=== PATIENT | male | born 1950 | race African-American/Black ===

== ENCOUNTER 2020-03-16 11:54 | Outpatient (REF) | payer MEDICARE, OTHER, SELFPAY ==
[2020-03-16 14:34] LABS: PSA,Total (Free>4and<10) 2.89 ng/mL (0.00-4.00)
== END 2020-03-16 11:55 | disposition home or self-care (01) ==
LOC: HO.HMGCLDS 11:54
PROVIDERS: PCP Internal Medicine; Visit Provider Urology
DX: Z85.46 Personal history of malignant neoplasm of prostate (principal); Z12.5 Encounter for screening for malignant neoplasm of prostate
CPT/HCPCS: 84153

== ENCOUNTER 2020-03-29 09:49 | Outpatient (REF) | payer MEDICARE, OTHER, SELFPAY ==
--- NOTE | 2020-03-29 10:00 | XR_ITS ---
EXAMINATION: XR HIP, LEFT CLINICAL INFORMATION: M25.552 - Pain in left hip COMPARISON: None TECHNIQUE: Frontal view pelvis is performed along with AP and frog-lateral projections left hip. FINDINGS: There is no fracture, dislocation, destructive process. There are mild degenerative changes lumbosacral spine. Bilateral whiskering from the iliac crests seen, greater on right. The pubis is unremarkable. There are degenerative changes right hip with superior joint narrowing. No erosive change. There has been prior left hip replacement. The hardware is intact. There is no fracture or dislocation or destructive process. An oval nonmineralized and circumscribed cyst is present within the superior aspect left greater trochanter measuring approximately 1.4 x 1.8 cm. XR/XR hip LT w PEL1V IMPRESSION: 1. Status post left hip replacement. Hardware intact. Circumscribed cyst within the left greater trochanter 1.4 x 1.8 cm. 2. Degenerative changes lumbosacral spine and right hip.
== END 2020-03-29 09:50 | disposition home or self-care (01) ==
LOC: HO.HMGCX 09:49
PROVIDERS: PCP Internal Medicine; Visit Provider Internal Medicine
DX: M25.552 Pain in left hip (principal)
CPT/HCPCS: 73502

== ENCOUNTER 2020-08-02 16:33 | Outpatient (REF) | payer MEDICARE, OTHER, SELFPAY | END 2020-08-02 16:34 | disposition home or self-care (01) | LOC: HO.LNP 16:33 | PROVIDERS: Visit Provider Internal Medicine | DX: N39.0 Urinary tract infection, site not specified (principal) | CPT/HCPCS: 87086; 87088; 87186 ==

== ENCOUNTER 2020-08-16 08:26 | Outpatient (REF) | payer MEDICARE, OTHER, SELFPAY ==
[2020-08-16 11:59] LABS: Alanine Aminotransferase 25 U/L (0-40); Anion Gap 12 (12-20); Aspartate Amino Transferase 19 U/L (5-37); Blood Urea Nitrogen 18 mg/dL (9-16); Calcium 9.2 mg/dL (8.4-10.2); Carbon Dioxide 29 mmol/L (22-29); Chloride 103 mmol/L (96-108); Cholesterol 197 mg/dL; Estimated Glomerular Filt Rate > 60; Glucose Fasting 91 mg/dL (60-99); HDL Cholesterol 53 mg/dL; LDL Cholesterol Calculated 128 mg/dl; Potassium 4.1 mmol/L (3.3-5.1); Sodium 140 mmol/L (135-145); Triglycerides 80 mg/dL
[2020-08-16 12:23] LABS: PSA,Total (Free>4and<10) 4.76 ng/mL (0.00-4.00)
[2020-08-17 11:37] LABS: Free Prostate Spec Ag 0.5 ng/mL; Percent Free Prostate Spec Ag 11 % (calc) (>25); Prostate Specific Ag Total 4.6 ng/mL (< OR = 4.0)
== END 2020-08-16 08:27 | disposition home or self-care (01) ==
LOC: HO.HMGCLDS 08:26
PROVIDERS: Urology; PCP Internal Medicine; Visit Provider Internal Medicine
DX: E78.5 Hyperlipidemia, unspecified (principal); I10 Essential (primary) hypertension; N40.1 Benign prostatic hyperplasia with lower urinary tract symptoms; N13.8 Other obstructive and reflux uropathy; C61 Malignant neoplasm of prostate; Z12.5 Encounter for screening for malignant neoplasm of prostate
CPT/HCPCS: 36415; 80048; 80061; 84153; 84154; 84450; 84460

== ENCOUNTER 2020-09-06 07:51 | Outpatient (REF) | payer MEDICARE, OTHER, SELFPAY | END 2020-09-06 07:52 | disposition home or self-care (01) | LOC: HO.HOSX 07:51 | PROVIDERS: Visit Provider Physician Assistant | DX: M25.551 Pain in right hip (principal); M25.511 Pain in right shoulder; Z96.642 Presence of left artificial hip joint | CPT/HCPCS: 99202 ==

== ENCOUNTER 2020-09-13 07:13 | Outpatient (REF) | payer MEDICARE, OTHER, SELFPAY ==
--- NOTE | ~2020-09-13 | XR_ITS ---
EXAMINATION: XR HIP, RIGHT CLINICAL INFORMATION: Right hip pain COMPARISON: Pelvic radiograph 03/29/2020 TECHNIQUE: AP and frog-lateral projections of the right hip. FINDINGS: No fracture, dislocation, destructive process. There are osteoarthritic changes with moderate narrowing right superior hip joint and borderline subchondral sclerosis. No erosive change or visible chondrocalcinosis. There are also mild degenerative changes lower right SI joint. XR/XR hip RT min 2V IMPRESSION: Moderate superior right hip joint narrowing. Mild degenerative change lower right SI joint.
== END 2020-09-13 07:14 | disposition home or self-care (01) ==
LOC: HO.HOSX 07:13
PROVIDERS: Visit Provider Physician Assistant
DX: M16.11 Unilateral primary osteoarthritis, right hip (principal)
CPT/HCPCS: 73502; 99212

== ENCOUNTER 2020-09-27 08:42 | Outpatient (REF) | payer MEDICARE, OTHER, SELFPAY ==
[2020-09-27 13:48] LABS: PSA,Total (Free>4and<10) 4.25 ng/mL (0.00-4.00)
[2020-09-28 11:42] LABS: Free Prostate Spec Ag 0.5 ng/mL; Percent Free Prostate Spec Ag 11 % (calc) (>25); Prostate Specific Ag Total 4.4 ng/mL (< OR = 4.0)
== END 2020-09-27 08:43 | disposition home or self-care (01) ==
LOC: HO.LAB 08:42
PROVIDERS: PCP Internal Medicine; Visit Provider Urology
DX: Z12.5 Encounter for screening for malignant neoplasm of prostate (principal); C61 Malignant neoplasm of prostate
CPT/HCPCS: 36415; 84153; 84154

== ENCOUNTER → 2020-09-28 14:46 | Outpatient (BNVA) | payer MEDICARE, OTHER, SELFPAY | PROVIDERS: PCP Internal Medicine; Visit Provider Urology | DX: N40.1 Benign prostatic hyperplasia with lower urinary tract symptoms (principal); N39.0 Urinary tract infection, site not specified; C61 Malignant neoplasm of prostate | CPT/HCPCS: 99212 ==

== ENCOUNTER 2021-03-31 14:20 | Outpatient (REF) | payer MEDICARE, OTHER, SELFPAY ==
[2021-04-01 00:54] LABS: PSA,Total (Free>4and<10) 2.96 ng/mL (0.00-4.00)
== END 2021-03-31 14:21 | disposition home or self-care (01) ==
LOC: HO.HMGCLDS 14:20
PROVIDERS: Absent Provider Internal Medicine; PCP Internal Medicine; Visit Provider Urology
DX: I10 Essential (primary) hypertension (principal); E78.5 Hyperlipidemia, unspecified; C61 Malignant neoplasm of prostate; N13.8 Other obstructive and reflux uropathy; N40.1 Benign prostatic hyperplasia with lower urinary tract symptoms; Z20.822 Contact with and (suspected) exposure to COVID-19; Z12.5 Encounter for screening for malignant neoplasm of prostate
CPT/HCPCS: 36415; 84153; U0003; U0005

== ENCOUNTER → 2021-04-19 10:26 | Outpatient (BNVA) | payer MEDICARE, OTHER, SELFPAY | PROVIDERS: PCP Internal Medicine; Visit Provider Urology | DX: C61 Malignant neoplasm of prostate (principal) | CPT/HCPCS: Q3014 ==

== ENCOUNTER 2021-11-07 09:43 | Outpatient (REF) | payer MEDICARE, OTHER, SELFPAY ==
[2021-11-07 11:57] LABS: Prostate Specific Antigen 1.97 ng/mL (<0.05-4.0)
== END 2021-11-07 09:44 | disposition home or self-care (01) ==
LOC: HO.HMGCLDS 09:43
PROVIDERS: PCP Internal Medicine; Visit Provider Urology
DX: Z12.5 Encounter for screening for malignant neoplasm of prostate (principal); C61 Malignant neoplasm of prostate
CPT/HCPCS: 36415; 84153

== ENCOUNTER → 2021-11-30 13:51 | Outpatient (BNVA) | payer MEDICARE, OTHER, SELFPAY | PROVIDERS: PCP Internal Medicine; Visit Provider Urology | DX: C61 Malignant neoplasm of prostate (principal) | CPT/HCPCS: Q3014 ==

== ENCOUNTER 2022-05-23 07:48 | Outpatient (REF) | payer MEDICARE, OTHER, SELFPAY ==
[2022-05-23 11:54] LABS: Prostate Specific Antigen 2.26 ng/mL (<0.05-4.0)
== END 2022-05-23 07:49 | disposition home or self-care (01) ==
LOC: HO.HMGCLDS 07:48
PROVIDERS: PCP Internal Medicine; Visit Provider Urology
DX: C61 Malignant neoplasm of prostate (principal); Z12.5 Encounter for screening for malignant neoplasm of prostate
CPT/HCPCS: 36415; 84153

== ENCOUNTER 2022-07-25 12:31 | Outpatient (REF) | payer MEDICARE, OTHER, SELFPAY ==
[2022-07-25 14:19] LABS: Alanine Aminotransferase 16 U/L (0-40); Anion Gap 13 (12-20); Aspartate Amino Transferase 19 U/L (5-37); Blood Urea Nitrogen 21 mg/dL (9-16); Calcium 9.5 mg/dL (8.4-10.2); Carbon Dioxide 28 mmol/L (22-29); Chloride 107 mmol/L (96-108); Cholesterol 204 mg/dL; Estimated Glomerular Filt Rate > 60; Glucose Fasting 78 mg/dL (60-99); HDL Cholesterol 68 mg/dL; LDL Cholesterol Calculated 129 mg/dl; Sodium 144 mmol/L (135-145); Triglycerides 37 mg/dL
[2022-07-25 14:57] LABS: Erythrocyte Sedimentation Rate 14 MM/HR (0-15)
== END 2022-07-25 12:32 | disposition home or self-care (01) ==
LOC: HO.HMGCLDS 12:31
PROVIDERS: PCP Internal Medicine; Visit Provider Internal Medicine
DX: E78.5 Hyperlipidemia, unspecified (principal); I10 Essential (primary) hypertension; K21.9 Gastro-esophageal reflux disease without esophagitis; M79.10 Myalgia, unspecified site; Z86.16 Personal history of COVID-19
CPT/HCPCS: 36415; 80048; 80061; 82550; 84450; 84460; 85652; 86141

== ENCOUNTER 2022-08-07 09:39 | Outpatient (REF) | payer MEDICARE, OTHER, SELFPAY ==
--- NOTE | ~2022-08-07 | XR_ITS ---
EXAMINATION: 1. RADIOGRAPHS THORACIC SPINE 2. RADIOGRAPHS LUMBAR SPINE CLINICAL INFORMATION: Dorsalgia COMPARISON: None TECHNIQUE: 3 views of the thoracic spine and 3 views of the lumbar spine were obtained. FINDINGS: Thoracic spine: Normal alignment of the thoracic spine. Thoracic vertebral body heights are maintained. Mild disc space narrowing within the mid and lower thoracic spine. Small to moderate-sized osteophytes are scattered throughout the thoracic spine. Visualized lung parenchyma is well aerated. Lumbar spine: Normal alignment of the lumbar spine. Lumbar vertebral body heights are maintained. Mild narrowing of the L3/L4 disc space. There are mild degenerative changes of the posterior elements of the lower lumbar spine. Partially visualized bilateral hip prostheses. XR/XR thoracic spine 3V IMPRESSION: 1. Mild degenerative changes of the thoracic spine without compression deformity. 2. Mild degenerative changes of the lumbar spine without compression deformity.
--- NOTE | ~2022-08-07 | XR_ITS ---
EXAMINATION: 1. RADIOGRAPHS THORACIC SPINE 2. RADIOGRAPHS LUMBAR SPINE CLINICAL INFORMATION: Dorsalgia COMPARISON: None TECHNIQUE: 3 views of the thoracic spine and 3 views of the lumbar spine were obtained. FINDINGS: Thoracic spine: Normal alignment of the thoracic spine. Thoracic vertebral body heights are maintained. Mild disc space narrowing within the mid and lower thoracic spine. Small to moderate-sized osteophytes are scattered throughout the thoracic spine. Visualized lung parenchyma is well aerated. Lumbar spine: Normal alignment of the lumbar spine. Lumbar vertebral body heights are maintained. Mild narrowing of the L3/L4 disc space. There are mild degenerative changes of the posterior elements of the lower lumbar spine. Partially visualized bilateral hip prostheses. XR/XR lumbar spine 2-3V IMPRESSION: 1. Mild degenerative changes of the thoracic spine without compression deformity. 2. Mild degenerative changes of the lumbar spine without compression deformity.
== END 2022-08-07 09:40 | disposition home or self-care (01) ==
LOC: HO.HMGCX 09:39
PROVIDERS: PCP Internal Medicine; Visit Provider Internal Medicine
DX: M54.9 Dorsalgia, unspecified (principal)
CPT/HCPCS: 72072; 72100

== ENCOUNTER 2022-10-11 15:08 | Outpatient (AMB) | payer MEDICARE, OTHER, SELFPAY ==
--- NOTE | 2022-10-11 15:09 | A.OFFVIS_ITS ---
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 He is a patient of Dr. Harvey. He is seen for the following urologic conditions. - prostate cancer - worked on [employer]. Telemedicine Evaluation 15 min Consultation [employer] Juan J Video attempted PSA remains stable Minimal issues Continue 6 month surveillance Prescription refilled Prostate cancer: low-grade, low volume 2016 PSA stable Continue surveillance Prostate cancer was diagnosed 05/19 Dr Preston. Diagnosis was reached by needle biopsy, for elevated PSA, PSA at diagnosis 10, , size at TRUS 60cc. The [place] grade is 05/2016 3+3 = 6, At biopsy, one out of twelve cores - left apex 50% . TNM Classification of Malignant Tumours (TNM) T1c. The D'Ellen (NCCN) risk category is Low Risk (PSA< 10, Gl < 7, T1c). Initial therapy included Primary treatment, Observation. Recent labs included a PSA (prostate-specific antigen) Apr 18 - 10.4, Oct 16 8.4, 02/16 5.3/19%, 10/17 10.3, 07/19 8.8 F 15%, 01/18 2.5. - 09/20 4.25, 03/22 2.9 finasteride, 11/21 2.0. 05/25 2.2 Recent imaging included 11/17 MRI 1.2 cm lesion at base, low piRADS. Therapeutic plan: Continue with surveillance. [facility] Medical History Arthralgia of multiple sites Back pain Costochondritis Dyslipidemia Encounter for screening laboratory testing for COVID-19 virus Essential hypertension GERD (gastroesophageal reflux disease) Glaucoma History of COVID-19 Left hip pain Muscle pain UTI (urinary tract infection) Surgical History History of wisdom tooth extraction Hx of colonoscopy Status post total hip replacement, left Family History Father CHF (congestive heart failure) Glaucoma Mother HTN (hypertension) Sister No problems noted. Sister No problems noted. Son No problems noted. Son No problems noted. Son No problems noted. Social History Housing: House Alcohol intake: current Patient Tobacco Use Status: Former Tobacco user Years Smoked: 3 yrs e-Cigarette/Vaping Use: Never Used Second Hand Smoke Exposure: No service: No Current occupational status: retired Current occupation: right handed. Cognitive needs: No Hearing needs: No Vision needs: Yes Review of Systems Const All systems reviewed & are unremarkable except as noted in HPI and below Reports no additional complaints Resp Reports no additional complaints GI Reports no additional complaints Reports as per HPI Musc Reports no additional complaints Physical Exam Telemedicine evaluation Appropriate responses Regular breathing rate and rhythm HEENT Head: Yes normal to inspection Ears: hearing grossly normal bilaterally Eyes General: appearance normal, both eyes and all related structures Neck Neck: Yes normal visual inspection Chest Chest palpation & inspection: normal inspection of the chest Resp Effort & Inspection: normal respiratory effort and able to speak in complete sentences Assessment & Plan Assessment & Plan (1) Prostate cancer: Comment: May 2016 low-grade, low volume Code(s): C61 - Malignant neoplasm of prostate Plan 6 month follow-up Orders: Orders Prostate Specific Antigen 6 Months C61 - Malignant neoplasm of prostate Medications: Refilled finasteride 5 mg PO DAILY 90 days 90 tabs 3RF C61 - Malignant neoplasm of prostate Patient Instructions: Imaging studies, laboratory and physical exam results were discussed and reviewed in detail. No major barriers to patient understanding were identified. An opportunity to ask questions regarding the treatment plan was provided. All questions were answered. The patient expressed understanding and agreement with the above treatment plan. The patient is aware they should contact our office by phone for worsening of their current condition or the appearance of new urologic symptoms. Compliance is encouraged with any medications and followup testing that is ordered. It is a privilege to participate in the urologic care of your patient. If you have any questions or concerns regarding treatment for the above conditions, or other urologic issues, please do not hesitate to contact me. The office telephone contact is [phone]. This note is constructed using voice recognition software. While every effort has been made to ensure accuracy preventive maintenance coordinator errors may have been included. Yours sincerely, Dr Jenaro Preston MD, [facility] - Urology Providers of Expert, Compassionate Care for the Genitourinary System Telehealth Telehealth Location of provider rendering services: practice address Location of patient: address on file Patient Identification confirmed using: Name, : Yes Telehealth method: video Patient verbally consented to treatment: Yes Patient verbally consented to billing insurance company: Yes Patient informed of any privacy concerns related to visit: Yes Coding Level of Care Code Tele Est Pt Level 3 (75065) Diagnoses Prostate cancer C61
== END 2022-10-11 15:38 | disposition home or self-care (01) ==
LOC: HO.HUSH 15:08
PROVIDERS: PCP Internal Medicine; Visit Provider Urology
DX: C61 Malignant neoplasm of prostate (principal)
CPT/HCPCS: 99213

== ENCOUNTER → 2022-10-11 15:08 | Outpatient (BNVA) | payer MEDICARE, OTHER, SELFPAY | PROVIDERS: PCP Internal Medicine; Visit Provider Urology | DX: C61 Malignant neoplasm of prostate (principal); I10 Essential (primary) hypertension; Z87.440 Personal history of urinary (tract) infections; Z79.899 Other long term (current) drug therapy | CPT/HCPCS: Q3014 ==

== ENCOUNTER 2022-11-22 08:14 | Outpatient (AMB) | payer MEDICARE, OTHER, SELFPAY ==
--- NOTE | 2022-11-22 08:18 | AM.OFFVISMDC ---
Intake Vital Signs 11/22/22 08:20 Height 5 ft 9 in Weight 244 lb 2 oz BMI 36.0 BP 130/88 Blood Pressure Location Lt brachial Position Sitting Pulse 71 Pulse Source Pulse Oximeter Pulse Oximetry (%) 97 Oxygen Delivery Method Room Air Intake Visit Reasons: SWV [id number] Allergies No Known Allergies Allergy (Verified 11/22/22 09:05) Medication List - Last Reconciled 11/22/22 by Kari Harvey MD amlodipine 5 mg PO DAILY atorvastatin 20 mg PO DAILY finasteride 5 mg PO DAILY 90 days hydrochlorothiazide 25 mg PO QAM latanoprost 0.005% drps ophthalmic (eye) lisinopril 10 mg PO QAM omeprazole 40 mg PO DAILY HPI SWV [id number] HPI Details IPPE/AWV ? year old presents for her ? Annual Wellness Visit, initial visit.? Medical / Social History Reviewed? Past Medical History ?Yes . ? [place] of Care / Care Team list updated ?Yes . ? Surgical/Hospitalization History ?Yes . ? Current Medications (including OTC and supplements) ?Yes . ? Family History ?Yes . ? Tobacco Control form ?Yes . ? AUDIT-C (Alcohol use) form ?Yes . ? Illicit drug use in Social History ?Yes . ? Current diagnosis of depression? ?No ? Appropriate PHQ2/PHQ9 completed ?Yes . ? Data entered by ?Dental Assistant Medical Assistant and reviewed by provider ? Fall Risk ? Fall History? Have you had any falls with injury in the past year? ?No . ? Have you had two or more falls in the past year? ?No . ? Fall Risk Assessment: ?No falls in the past year . ? HRA filled out by the patient, reviewed by Provider and scanned. ? IPPE/AWV ? Balance? Romberg ?Yes . ? Tandem walk ?Yes . ? Walk and Turn ?Yes . ? Rise from sit to stand ?Yes . ?Vision? Corrective lens ?Yes ? Vision screen ? Up-to-date, has an appointment Dr. Pennington 08/10/2020 for her vision screening and glaucoma screening ?Hearing? Whisper test ?pass . ?Written Plan?Completed. See Patient Documents.? [facility] Medical History Arthralgia of multiple sites Back pain Costochondritis Dyslipidemia Encounter for screening laboratory testing for COVID-19 virus Essential hypertension GERD (gastroesophageal reflux disease) Glaucoma History of COVID-19 Left hip pain Muscle pain UTI (urinary tract infection) Surgical History History of wisdom tooth extraction Hx of colonoscopy Status post total hip replacement, left Family History Father CHF (congestive heart failure) Glaucoma Mother HTN (hypertension) Sister No problems noted. Sister No problems noted. Son No problems noted. Son No problems noted. Son No problems noted. Social History Housing: House Alcohol intake: current Patient Tobacco Use Status: Former Tobacco user Years Smoked: 3 yrs e-Cigarette/Vaping Use: Never Used Second Hand Smoke Exposure: No service: No Current occupational status: retired Current occupation: right handed. Cognitive needs: No Hearing needs: No Vision needs: Yes Questionnaire Medicare Wellness Checkup [age] What gender do you identify with?: male During the past 4 weeks, how much have you been bothered by emotional problems such as feeling anxious, depressed, irritable, sad or downhearted, and blue?: not at all During the past 4 weeks, has your physical & emotional health limited your social activities with family, friends, neighbors, or groups?: not at all During the past 4 weeks, how much bodily pain have you generally had?: moderate pain During the past 4 weeks, was someone available to help you if you needed & wanted help?: yes, as much as I wanted During the past 4 weeks, what was the hardest physical activity you could do for at least 2 minutes?: heavy Can you get to places out of walking distance without help? (For eg., can you travel alone on buses, taxis or drive your car?): Yes Can you go shopping for groceries or clothes without someone's help?: Yes Can you prepare your own meals?: Yes Can you do your housework without help?: Yes Because of any health problems, do you need the help of another person with your personal care needs such as eating, bathing, dressing or getting around the house?: No Can you handle your own money without help?: Yes During the past 4 weeks, how would you rate your health in general?: excellent During the past 4 weeks how have things been going for you?: very well; could hardly better Are you having difficulties driving your car?: no Do you always fasten your seat belt when you are in a car?: yes, usually During past 4 weeks, have you been bothered by the following: never: Falling or dizzy when standing up, Sexual problems?, Trouble eating well?, Teeth or denture problems?, Problems using the telephone? and Tiredness or fatigue? Have you fallen 2 or more times in the past year?: No Are you afraid of falling?: Yes Are you a smoker?: no During the past 4 weeks, how many drinks of wine, beer, or other alcoholic beverages did you have?: no alcohol at all Do you exercise for about 20 minutes 3 or more times a week?: yes, most of the time Have you been given information to help with the following?: no: Hazards in your house that might hurt you? and no: Keeping track of your medications? How often do you have trouble taking medicines the way you have been told to take them?: I always take medicine as prescribed How confident are you that you can control & manage most of your health problems?: very confident What is your race?: Black or PHQ-9 Over the last 2 weeks, how often have you been bothered by any of the following problems? 1. Little interest or pleasure in doing things: not at all 2. Feeling down, depressed, or hopeless: not at all 3. Trouble falling or staying asleep, or sleeping too much: not at all 4. Feeling tired or having little energy: not at all 5. Poor appetite or overeating: not at all 6. Feeling bad about yourself - or that you are a failure or have let yourself or your family down: not at all 7. Trouble concentrating on things, such as reading the newspaper or watching television: not at all 8. Moving or speaking so slowly that other people could have noticed. Or the opposite - being so fidgety or restless that you have been moving around a lot more than usual: not at all 9. Thoughts that you would be better off or of hurting yourself in some way: not at all Total score: 0 Source: Developed by Drs. Dave Lu, Socorro Alfaro, Horace Mckeon and colleagues, with an educational juanita from [employer]. Physical Exam Vital Signs: Last Vital Signs Pulse 71 11/22/22 08:20 BP 130/88 11/22/22 08:20 Pulse Ox 97 11/22/22 08:20 Oxygen Delivery Method Room Air 11/22/22 08:20 BMI result Body Mass Index 36.0 Quality Reporting (2019) Depression/Bipolar (159/160/161/177) PHQ-9: Total score: 0 Coding Diagnoses
[2022-11-22 08:20] VITALS: BP 130/88; PULSE 71; O2SAT 97; BMI 36.0
--- NOTE | 2022-11-22 09:14 | MHC.PC.OV ---
Vital Signs 11/22/22 08:20 Height 5 ft 9 in Weight 244 lb 2 oz BMI 36.0 BP 130/88 Blood Pressure Location Lt brachial Position Sitting Pulse 71 Pulse Source Pulse Oximeter Pulse Oximetry (%) 97 Oxygen Delivery Method Room Air Intake Visit Reasons: right elbow pain Allergies No Known Allergies Allergy (Verified 11/22/22 09:05) Medication List - Last Reconciled 11/22/22 by Kari Harvey MD amlodipine 5 mg PO DAILY atorvastatin 20 mg PO DAILY finasteride 5 mg PO DAILY 90 days hydrochlorothiazide 25 mg PO QAM latanoprost 0.005% drps ophthalmic (eye) lisinopril 10 mg PO QAM omeprazole 40 mg PO DAILY Tobacco use date assessed: 07/19/22 HPI right elbow pain HPI Details 72-year-old male, here today complaining of pain and stiffness in his right elbow, worse with opening jars, or lifting or caring and have repeat a right hand. This has been present now for the last several weeks and getting worse. 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 He taking [id number] NSAIDs, Tylenol, ply heat and ice to affected joint which affords only temporary relief. He is also here for follow-up on his lipids, currently taking atorvastatin 20 mg daily. Has been compliant with his diet and exercises regularly [facility] Medical History (Updated 11/22/22 @ 09:29 by Kari Harvey MD) Arthralgia of multiple sites Back pain Costochondritis Dyslipidemia Encounter for screening laboratory testing for COVID-19 virus Essential hypertension GERD (gastroesophageal reflux disease) Glaucoma History of COVID-19 Left hip pain Muscle pain Right elbow pain UTI (urinary tract infection) Surgical History History of wisdom tooth extraction Hx of colonoscopy Status post total hip replacement, left Family History Father CHF (congestive heart failure) Glaucoma Mother HTN (hypertension) Sister No problems noted. Sister No problems noted. Son No problems noted. Son No problems noted. Son No problems noted. Social History Housing: House Alcohol intake: current Patient Tobacco Use Status: Former Tobacco user Years Smoked: 3 yrs e-Cigarette/Vaping Use: Never Used Second Hand Smoke Exposure: No service: No Current occupational status: retired Current occupation: right handed. Cognitive needs: No Hearing needs: No Vision needs: Yes Questionnaire Thrive Questionnaire Date Thrive assessed: 11/08/20 Review of Systems Const All systems reviewed & are unremarkable except as noted in HPI and below Physical exam (Primary Care) Vital Signs: Last Vital Signs Pulse 71 11/22/22 08:20 BP 130/88 11/22/22 08:20 Pulse Ox 97 11/22/22 08:20 Oxygen Delivery Method Room Air 11/22/22 08:20 BMI result Body Mass Index 36.0 Tobacco/Smoking Status: Tobacco use Status Tobacco use date assessed 07/19/22 11/22/22 09:14 Patient Tobacco Use Status Former Tobacco user 11/22/22 09:14 e-Cigarette/Vaping Use Never Used 11/22/22 09:14 Thrive Assessment: Date of Thrive Assessment Date Thrive assessed 11/08/20 11/22/22 09:14 Const Other: Alert oriented x3, no acute distress noted ambulatory normal gait Orientation/consciousness: patient oriented x3 Resp Effort & Inspection: normal respiratory effort Auscultation: clear to auscultation bilaterally Cardio Other: S1-S2 present regular rate Skin General skin exam: no rashes or lesions noted Neuro General: patient oriented x3, gait normal, tone normal, moves all extremities, Normal light touch and pain sensation, no focal motor deficits and CN's II-XI intact bilaterally Extrem Other: Tenderness on palpation over lateral epicondyle area on the right with slight swelling, no gross bone deformity seen Assessment and Plan Assessment & Plan (1) Right elbow pain: Code(s): M25.521 - Pain in right elbow Plan: Referred for physical therapy for further evaluation and management. Call if no improvement with physical therapy and will refer to orthopedics as needed (2) Dyslipidemia: Code(s): E78.5 - Hyperlipidemia, unspecified Plan: Ordered a fasting lipid panel and liver enzyme check. In meantime continue with atorvastatin 20 mg daily Orders: Orders Alanine Aminotransferase 11/22/22 E78.5 - Hyperlipidemia, unspecified Aspartate Amino Transferase 11/22/22 E78.5 - Hyperlipidemia, unspecified Lipid Panel 11/22/22 E78.5 - Hyperlipidemia, unspecified PT Evaluation and Treatment 11/22/22 M25.521 - Pain in right elbow Coding Level of Care Code Est Pt Level 3 (40885) Diagnoses Right elbow pain M25.521 Dyslipidemia E78.5
== END 2022-11-22 09:33 | disposition home or self-care (01) ==
PROVIDERS: PCP Internal Medicine; Visit Provider Internal Medicine
DX: M25.521 Pain in right elbow (principal); E78.5 Hyperlipidemia, unspecified
CPT/HCPCS: 99213

== ENCOUNTER 2022-11-22 09:34 | Outpatient (REF) | payer MEDICARE, OTHER, SELFPAY ==
[2022-11-22 12:33] LABS: Alanine Aminotransferase 13 U/L (0-40); Aspartate Amino Transferase 19 U/L (5-37); Cholesterol 193 mg/dL (<200); HDL Cholesterol 67 mg/dL (>40); LDL Cholesterol Calculated 116 mg/dL (<100); Triglycerides 50 mg/dL (<150)
== END 2022-11-22 09:35 | disposition home or self-care (01) ==
LOC: HO.HMGCLDS 09:34
PROVIDERS: PCP Internal Medicine; Visit Provider Internal Medicine
DX: E78.5 Hyperlipidemia, unspecified (principal)
CPT/HCPCS: 36415; 80061; 84450; 84460

== ENCOUNTER 2023-04-04 10:49 | Outpatient (REF) | payer MEDICARE, OTHER, SELFPAY | END 2023-04-04 10:50 | disposition home or self-care (01) | LOC: HO.HMGCLDS 10:49 | PROVIDERS: PCP Internal Medicine; Visit Provider Urology | DX: C61 Malignant neoplasm of prostate (principal); Z12.5 Encounter for screening for malignant neoplasm of prostate | CPT/HCPCS: 36415; 84153 ==

== ENCOUNTER 2023-04-10 13:51 | Outpatient (AMB) | payer MEDICARE, OTHER, SELFPAY ==
--- NOTE | 2023-04-10 13:52 | MHC.OFFVIS ---
Intake Intake Visit Reasons: 6m/psa(set) Intake Note: Patient is Present for Telephone Follow Up Urology Med: Finasteride, Antibiotic Allergy: None Blood Thinner: None Allergies No Known Allergies Allergy (Verified 04/10/23 13:56) Medication List - Last Reconciled 04/10/23 by Jenaro Preston MD amlodipine 5 mg PO DAILY atorvastatin 20 mg PO DAILY finasteride 5 mg PO DAILY 90 days hydrochlorothiazide 25 mg PO QAM latanoprost 0.005% drps ophthalmic (eye) lisinopril 10 mg PO QAM omeprazole 40 mg PO DAILY HPI HPI Comments History of Present Illness Details Mr Jolly is a very pleasant male. He is a patient of Dr. Harvey. He is seen for the following urologic conditions. - prostate cancer - worked on [employer]. Telemedicine Evaluation 15 min Consultation [employer] Juan J Video attempted PSA remains stable Minimal issues Continue 6 month surveillance Prescription refilled Prostate cancer: low-grade, low volume 2016 PSA stable Continue surveillance Prostate cancer was diagnosed 05/19 Dr Preston. Diagnosis was reached by needle biopsy, for elevated PSA, PSA at diagnosis 10, , size at TRUS 60cc. The [place] grade is 05/2016 3+3 = 6, At biopsy, one out of twelve cores - left apex 50% . TNM Classification of Malignant Tumours (TNM) T1c. The D'Ellen (NCCN) risk category is Low Risk (PSA< 10, Gl < 7, T1c). Initial therapy included Primary treatment, Observation. Recent labs included a PSA (prostate-specific antigen) Apr 18 - 10.4, Oct 16 8.4, 02/16 5.3/19%, 10/17 10.3, 07/19 8.8 F 15%, 01/18 2.5. - 09/20 4.25, 03/22 2.9 finasteride, 11/21 2.0. 05/25 2.2, 04/24 1.9 Recent imaging included 11/17 MRI 1.2 cm lesion at base, low piRADS. Therapeutic plan: Continue with surveillance. [facility] Medical History Right elbow pain Muscle pain Back pain History of COVID-19 Costochondritis UTI (urinary tract infection) Arthralgia of multiple sites Left hip pain Encounter for screening laboratory testing for COVID-19 virus GERD (gastroesophageal reflux disease) Glaucoma Dyslipidemia Essential hypertension Surgical History Hx of colonoscopy Status post total hip replacement, left History of wisdom tooth extraction Family History Father CHF (congestive heart failure) Glaucoma Mother HTN (hypertension) Sister No problems noted. Sister No problems noted. Son No problems noted. Son No problems noted. Son No problems noted. Social History Housing: House Alcohol intake: current Patient Tobacco Use Status: Former Tobacco user Years Smoked: 3 yrs e-Cigarette/Vaping Use: Never Used Second Hand Smoke Exposure: No service: No Current occupational status: retired Current occupation: right handed. Cognitive needs: No Hearing needs: No Vision needs: Yes Review of Systems Const Denies chills and Denies fever(s) Card Reports no additional complaints and Denies syncope Resp Denies cough GI Denies abdominal pain and Denies heartburn Reports as per HPI and Denies change in libido Neuro Denies syncope Psych Denies change in libido Endo Denies change in libido Assessment & Plan Assessment & Plan (1) Prostate cancer: Comment: May 2016 low-grade, low volume Code(s): C61 - Malignant neoplasm of prostate Plan Six month follow-up PSA Orders: Orders Prostate Specific Antigen 6 Months C61 - Malignant neoplasm of prostate Patient Instructions: Imaging studies, laboratory and physical exam results were discussed and reviewed in detail. No major barriers to patient understanding were identified. An opportunity to ask questions regarding the treatment plan was provided. All questions were answered. The patient expressed understanding and agreement with the above treatment plan. The patient is aware they should contact our office by phone for worsening of their current condition or the appearance of new urologic symptoms. Compliance is encouraged with any medications and followup testing that is ordered. It is a privilege to participate in the urologic care of your patient. If you have any questions or concerns regarding treatment for the above conditions, or other urologic issues, please do not hesitate to contact me. The office telephone contact is [phone]. This note is constructed using voice recognition software. While every effort has been made to ensure accuracy pilot captain errors may have been included. Yours sincerely, Dr Jenaro Preston MD, [facility] - Urology Providers of Expert, Compassionate Care for the Genitourinary System Telehealth Telehealth Location of provider rendering services: practice address Location of patient: address on file Patient Identification confirmed using: Name, : Yes Telehealth method: video Patient verbally consented to treatment: Yes Patient verbally consented to billing insurance company: Yes Patient informed of any privacy concerns related to visit: Yes Coding Level of Care Code Tele Est Pt Level 3 (78682) Diagnoses Prostate cancer C61
== END 2023-04-10 14:25 | disposition home or self-care (01) ==
LOC: HO.HUSH 13:51
PROVIDERS: PCP Internal Medicine; Visit Provider Urology
DX: C61 Malignant neoplasm of prostate (principal)
CPT/HCPCS: 99213

== ENCOUNTER → 2023-04-10 13:51 | Outpatient (BNVA) | payer MEDICARE, OTHER, SELFPAY | PROVIDERS: PCP Internal Medicine; Visit Provider Urology ==

== ENCOUNTER 2023-07-18 08:08 | Outpatient (AMB) | payer MEDICARE, OTHER, SELFPAY ==
[2023-07-18 08:21] VITALS: BP 130/80; PULSE 87; TEMP 36.8; O2SAT 98; BMI 36.2
--- NOTE | 2023-07-18 08:21 | AM.OFFWIN_ITS ---
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 Pt also c/o discolored finger nails. [facility] Medical History Right elbow pain Muscle pain Back pain History of COVID-19 Costochondritis UTI (urinary tract infection) Arthralgia of multiple sites Left hip pain Encounter for screening laboratory testing for COVID-19 virus GERD (gastroesophageal reflux disease) Glaucoma Dyslipidemia Essential hypertension Surgical History Hx of colonoscopy Status post total hip replacement, left History of wisdom tooth extraction Family History Father CHF (congestive heart failure) Glaucoma Mother HTN (hypertension) Sister No problems noted. Sister No problems noted. Son No problems noted. Son No problems noted. Son No problems noted. Social History Housing: House Alcohol intake: current Patient Tobacco Use Status: Former Tobacco user Years Smoked: 3 yrs e-Cigarette/Vaping Use: Never Used Second Hand Smoke Exposure: No service: No Current occupational status: retired Current occupation: right handed. Cognitive needs: No Hearing needs: No Vision needs: Yes Review of Systems Const All systems reviewed & are unremarkable except as noted in HPI and below Physical Exam Vital Signs: Last Vital Signs Temp 98.2 F 07/18/23 08:21 Pulse 87 04/17/24 08:21 BP 130/80 07/18/23 08:21 Pulse Ox 98 07/18/23 08:21 Oxygen Delivery Method Room Air 07/18/23 08:21 BMI result Body Mass Index 36.2 Const General: comfortable and no acute distress Orientation/consciousness: patient oriented x3 Chest Chest palpation & inspection: normal inspection of the chest, no crepitus, no masses and no tenderness Resp Effort & Inspection: normal respiratory effort and able to speak in complete sentences Auscultation: clear to auscultation bilaterally, no crackles, no rales, no rhonchi and no wheezes Cardio Rate: regular rate Rhythm: regular rhythm Skin Nails: no clubbing, discolored and other (Dark to brown discolored bilateral finger Nails. 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 - Continue with NSAIDs as directed. - IceHot - F/U with PCP. 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 This is a result of an increased number of melanocyte cells in the nails. The growth of melanocyte cells can be cancerous or noncancerous. 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
== END 2023-07-18 10:05 | disposition home or self-care (01) ==
PROVIDERS: PCP Internal Medicine; Visit Provider Nurse Practitioner Family
DX: M94.0 Chondrocostal junction syndrome [Tietze] (principal); L60.8 Other nail disorders
CPT/HCPCS: 99213

== ENCOUNTER 2023-07-18 09:02 | Outpatient (REF) | payer MEDICARE, OTHER, SELFPAY ==
--- NOTE | ~2023-07-18 | XR_ITS ---
EXAMINATION: XR CHEST CLINICAL INFORMATION: Chondrocostal junctions syndrome COMPARISON: 01/06/2019 TECHNIQUE: 2 views of the chest were obtained. FINDINGS: Heart, mediastinum, pulmonary vessels and lung carreon within normal limits. Biapical pleural thickening again seen. Degenerative changes noted. XR/XR chest 2V IMPRESSION: No acute cardiopulmonary disease or interval change.
== END 2023-07-18 09:03 | disposition home or self-care (01) ==
LOC: HO.HMGCX 09:02
PROVIDERS: PCP Internal Medicine; Visit Provider Nurse Practitioner Family
DX: M94.0 Chondrocostal junction syndrome [Tietze] (principal)
CPT/HCPCS: 71046

== ENCOUNTER 2023-08-06 10:07 | Outpatient (AMB) | payer MEDICARE, OTHER, SELFPAY ==
--- NOTE | 2023-08-06 10:22 | A.OFFPC_ITS ---
<Statement entered by Kari Harvey MD - 08/06/24 15:30> This note has been administratively?closed. Vital Signs 08/06/23 10:23 Height 5 ft 9 in Weight 254 lb 4 oz BMI 37.5 BP 130/82 Blood Pressure Location Lt brachial Position Sitting Pulse 88 Pulse Source Pulse Oximeter Pulse Oximetry (%) 97 Oxygen Delivery Method Room Air Intake Visit Reasons: Follow up Walk-in 07/17 Intake Note: Pt is here today for a follow up from walk in on 07/17. Allergies No Known Allergies Allergy (Verified 08/06/23 10:32) Tobacco use date assessed: 08/06/23 Fall risk assessment: No Falls in past year Last assessed Fall Risk: 08/06/23 Dental Screening Dental Screen Date: 08/06/23 Did you have a dental visit in the last 12 months?: Yes Did you have a dental problem in the last 6 months where you did not have access to dental care?: No Was dental information given to patient?: Patient has dentist [facility] Medical History (Updated 07/26/23 @ 12:59 by Kari Harvey MD) Right elbow pain Muscle pain Back pain History of COVID-19 Costochondritis UTI (urinary tract infection) Arthralgia of multiple sites Left hip pain Encounter for screening laboratory testing for COVID-19 virus GERD (gastroesophageal reflux disease) Glaucoma Dyslipidemia Essential hypertension Surgical History (Updated 07/26/23 @ 12:59 by Kari Harvey MD) H/O total hip arthroplasty Hx of colonoscopy Status post total hip replacement, left History of wisdom tooth extraction Family History Father CHF (congestive heart failure) Glaucoma Mother HTN (hypertension) Sister No problems noted. Sister No problems noted. Son No problems noted. Son No problems noted. Son No problems noted. Social History Housing: House Alcohol intake: current Patient Tobacco Use Status: Former Tobacco user Years Smoked: 3 yrs e-Cigarette/Vaping Use: Never Used Second Hand Smoke Exposure: No service: No Current occupational status: retired Current occupation: right handed. Cognitive needs: No Hearing needs: No Vision needs: Yes Questionnaire PHQ-9 Over the last 2 weeks, how often have you been bothered by any of the following problems? 1. Little interest or pleasure in doing things: several days 2. Feeling down, depressed, or hopeless: not at all 3. Trouble falling or staying asleep, or sleeping too much: not at all 4. Feeling tired or having little energy: several days 5. Poor appetite or overeating: not at all 6. Feeling bad about yourself - or that you are a failure or have let yourself or your family down: not at all 7. Trouble concentrating on things, such as reading the newspaper or watching television: not at all 8. Moving or speaking so slowly that other people could have noticed. Or the opposite - being so fidgety or restless that you have been moving around a lot more than usual: not at all 9. Thoughts that you would be better off or of hurting yourself in some way: not at all Total score: 2 Depression Screening Interpretation: Negative Depression Screening Done: Yes 26840 - PHQ-9 Billing: Yes Source: Developed by Drs. Dave Lu, Socorro Alfaro, Horace Mckeon and colleagues, with an educational juanita from [employer]. Thrive Questionnaire Date Thrive assessed: 08/06/23 I am a: Patient What is your living situation today?: I have a steady place to live Within the past 12 months, did the food you bought not last and you didn't have the money to get more?: Never true Within the past 12 months, did you worry whether your food would run out before you got money to buy more?: Never true Do you have trouble paying for medicines?: No Do you have trouble getting transportation to medical appointments?: No Do you have trouble paying your heating and electricity bill?: No Do you have trouble taking care of your child, family member or friend?: No Do you have trouble with day-to-day activities such as bathing, preparing meals, shopping, managing finances, etc.?: No Are you currently unemployed and looking for a job?: No Are you interested in more education?: No Please select the resources that you would like help with: None Currently or been in a relationship where the following occur: no concerns reported THRIVE Score: 0 AUDIT C Alcohol Use Questionnaire (AUDIT-C) 1. How often do you have a drink containing alcohol?: Monthly or less 2. How many drinks containing alcohol do you have on a typical day when you are drinking?: 1 or 2 3. How often do you have six or more drinks on one occasion?: Never Total Score: 1 SRINIVASAN-7 AMB Questionnaire SRINIVASAN-7 Date SRINIVASAN - 7 assessed: 09/05/23 Feeling nervous, anxious, or on edge: 1 = Several days Not being able to stop or control worryin = Not at all Worrying too much about different things: 0 = Not at all Trouble relaxin = Not at all Being so restless that it is hard to sit still: 0 = Not at all Becoming easily annoyed or irritable: 0 = Not at all Feeling afraid as if something awful might happen: 0 = Not at all Total SRINIVASAN-7 score (0-4 normal; 5-9 mild; 10-14 moderate; 15-21 severe): 1 Source: Developed by Drs. Dave Lu, Socorro Alfaro, Horace Mckeon and colleagues, with an educational juanita from [employer]. SRINIVASAN-7 Assessment Billing SRINIVASAN-7 Assessment Tool: SRINIVASAN-7 Assessment 89096 Physical exam (Primary Care) Vital Signs: Last Vital Signs Pulse 88 08/06/23 10:23 BP 130/82 08/06/23 10:23 Pulse Ox 97 08/06/23 10:23 Oxygen Delivery Method Room Air 08/06/23 10:23 BMI result Body Mass Index 37.5 Tobacco/Smoking Status: Tobacco use Status Tobacco use date assessed 08/06/23 08/06/23 10:35 Patient Tobacco Use Status Former Tobacco user 08/06/23 10:24 e-Cigarette/Vaping Use Never Used 08/06/23 10:24 PHQ-9: PHQ-9 Score PHQ-9: Total score 2 08/06/23 10:37 Depression Screening Interpretation: Negative Thrive Assessment: Date of Thrive Assessment Date Thrive assessed 08/06/23 08/06/23 10:37 Currently or been in a relationship where the following occur: no concerns reported Assessment and Plan Assessment & Plan (1) Costochondritis: Code(s): 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
[2023-08-06 10:23] VITALS: BP 130/82; PULSE 88; O2SAT 97; BMI 37.5
== END 2023-08-06 11:55 | disposition home or self-care (01) ==
PROVIDERS: PCP Internal Medicine; Visit Provider Internal Medicine
DX: M94.0 Chondrocostal junction syndrome [Tietze] (principal)
CPT/HCPCS: 99499

== ENCOUNTER 2023-12-18 10:50 | Outpatient (REF) | payer MEDICARE, OTHER, SELFPAY ==
[2023-12-18 14:24] LABS: Prostate Specific Antigen 1.79 ng/mL (<0.05-4.0)
== END 2023-12-18 10:51 | disposition home or self-care (01) ==
LOC: HO.HMGCLDS 10:50
PROVIDERS: PCP Internal Medicine; Visit Provider Urology
DX: C61 Malignant neoplasm of prostate (principal); Z12.5 Encounter for screening for malignant neoplasm of prostate
CPT/HCPCS: 36415; 84153

== ENCOUNTER 2024-03-12 10:54 | Outpatient (AMB) | payer MEDICARE, OTHER, SELFPAY ==
--- NOTE | 2024-03-12 11:13 | A.OFFVIS_ITS ---
Intake Visit Reasons: follow-up/PSA(set) Intake Note: Patient is Present for Follow Up PSA Urology Medication: Finasteride Antibiotic Allergies:None Blood Thinners: None Symptoms? no symptoms Tractor Sweeper Driver Required: No Accompanied by: Self / Same As Patient Allergies No Known Allergies Allergy (Verified 03/12/24 11:14) HPI Comments Details: Mr Jolly is a very pleasant male. He is a patient of Dr. Harvey. He is seen for the following urologic conditions. - prostate cancer - worked on [employer]. PSA remains stable Minimal issues Continue 6 month surveillance Prescription refilled Use finasteride Sunday, Sunday, Sunday Prostate cancer: low-grade, low volume 2016 PSA stable Continue surveillance Prostate cancer was diagnosed 05/19 Dr Preston. Diagnosis was reached by needle biopsy, for elevated PSA, PSA at diagnosis 10, , size at TRUS 60cc. The [place] grade is 05/2016 3+3 = 6, At biopsy, one out of twelve cores - left apex 50% . TNM Classification of Malignant Tumours (TNM) T1c. The D'Ellen (NCCN) risk category is Low Risk (PSA< 10, Gl < 7, T1c). Initial therapy included Primary treatment, Observation. Recent labs included a PSA (prostate-specific antigen) Apr 18 - 10.4, Oct 16 8.4, 02/16 5.3/19%, 10/17 10.3, 07/19 8.8 F 15%, 01/18 2.5. - 09/20 4.25, 03/22 2.9 finasteride, 11/21 2.0. 05/25 2.2, 04/24 1.9, 12/24 1.8 Recent imaging included 11/17 MRI 1.2 cm lesion at base, low piRADS. Therapeutic plan: Continue with surveillance. [facility] Medical History Right elbow pain Muscle pain Back pain History of COVID-19 Costochondritis UTI (urinary tract infection) Arthralgia of multiple sites Left hip pain Encounter for screening laboratory testing for COVID-19 virus GERD (gastroesophageal reflux disease) Glaucoma Dyslipidemia Essential hypertension Surgical History H/O total hip arthroplasty Hx of colonoscopy Status post total hip replacement, left History of wisdom tooth extraction Family History Father CHF (congestive heart failure) Glaucoma Mother HTN (hypertension) Sister No problems noted. Sister No problems noted. Son No problems noted. Son No problems noted. Son No problems noted. Social History Housing: House Alcohol intake: current Patient Tobacco Use Status: Former Tobacco user Years Smoked: 3 yrs e-Cigarette/Vaping Use: Never Used Second Hand Smoke Exposure: No service: No Current occupational status: retired Current occupation: right handed. Cognitive needs: No Hearing needs: No Vision needs: Yes Review of Systems Const Denies chills and Denies fever(s) Card Reports no additional complaints and Denies syncope Resp Denies cough GI Denies abdominal pain and Denies heartburn Reports as per HPI and Denies change in libido Neuro Denies syncope Psych Denies change in libido Endo Denies change in libido Physical Exam Const General: cooperative, healthy appearing, comfortable and no acute distress Orientation/consciousness: patient oriented x3 HEENT Face and sinus: Yes normal facial exam Mouth: moist mucous membranes Neck Neck: Yes normal visual inspection, Yes full ROM and Yes trachea midline Chest Chest palpation & inspection: normal inspection of the chest Resp Effort & Inspection: normal respiratory effort, able to speak in complete sentences and no respiratory distress GI Inspection: Yes normal to inspection Back/Spine/Pelvis Cervical Spine: normal cervical lordosis Thoracic/Lumbar Spine: thoracic and lumbar spine normal to inspection Skin General skin exam: no rashes or lesions noted Neuro General: patient oriented x3, gait normal, tone normal and moves all extremities Extrem General: Yes normal to inspection and Yes capillary refill normal Assessment & Plan Assessment & Plan (1) Prostate cancer: Comment: May 2016 low-grade, low volume Code(s): C61 - Malignant neoplasm of prostate Category: Medical Plan Six-month follow-up PSA tele Orders: Orders Prostate Specific Antigen 6 Months C61 - Malignant neoplasm of prostate Patient Instructions: Imaging studies, laboratory and physical exam results were discussed and reviewed in detail. No major barriers to patient understanding were identified. An opportunity to ask questions regarding the treatment plan was provided. All questions were answered. The patient expressed understanding and agreement with the above treatment plan. The patient is aware they should contact our office by phone for worsening of their current condition or the appearance of new urologic symptoms. Compliance is encouraged with any medications and followup testing that is ordered. It is a privilege to participate in the urologic care of your patient. If you have any questions or concerns regarding treatment for the above conditions, or other urologic issues, please do not hesitate to contact me. The office telephone contact is [phone]. This note is constructed using voice recognition software. While every effort has been made to ensure accuracy wealth management manager errors may have been included. Yours sincerely, Dr Jenaro Preston MD, [facility] - Urology Providers of Expert, Compassionate Care for the Genitourinary System Coding Level of Care Code Est Pt Level 3 (44843) Diagnoses Prostate cancer C61
--- OUTSIDE RECORDS SUMMARY | 2024-03-13 01:18 | XMS_ITS | Clinical Summary ---
Author Organization Unknown Care Team Providers Care Director Human Services Name Role Phone LOLA GUDINO, ROLANDA BEY Unavailable Unavaila troy FLOYD RN, CAT Unavailable Unavailable KIRSTEN PT, ATILIO Unavailable Unavailable SPAFFORD OT, NOELLE Unavailable Unavailable MBURU OPERATIONS PLANNER, HUSEYIN Unavailable Unavailable ANDRADE MACHINE MAINTENANCE SUPERVISOR, CHRISTA Unavailable Unavailable GARCIA MACHINE MAINTENANCE SUPERVISOR, CHI Unavailable Unavailable CONDINO JOB CHECKER/KELLOGG, CLAUS Unavailable Unav ailable Payers Payer Name Policy Type Policy Number Effective Date Expira tion Date MEDICARE.NGS.PDGM [id number] Problems Condition Name Condition Details Condition Category Status Onset Date Resolution Date Last Treatment Date Treating Clinician Comments AFTERCARE FOLLOWING JOINT REPLACEMENT SURGERY Active 2020-04 00:00: 00 PRESENCE OF RIGHT ARTIFICIAL HIP JOINT Active 2020-04 00:00: 00 ESSENTIAL (PRIMARY) HYPERTENSION Active 04-02 00:00: 00 MIXED HYPERLIPIDEM IA Active 04-02 00:00: 00 OTHER CHEST PAIN Active 04-02 00:00: 00 BENIGN PROSTATIC HYPERPLASIA WITHOUT LOWER URINRY TRACT SYMP Active 04-02 00:00: 00 OBESITY, UNSPECIFIED Active 04-02 00:00: 00 SLEEP APNEA, UNSPECIFIED Active 04-02 00:00: 00 BODY MASS INDEX [BMI] 38.0-38.9, ADULT Active 04-02 00:00: 00 PERSONAL HISTORY OF MALIGNANT NEOPLASM OF PROSTATE Active 04-02 00:00: 00 Allergies, Adverse Reactions, Alerts Allergy Name Allergy Type Status Severity Reaction(s) Onset Date Inactive Date Treating Clinician Comments NO KNOWN ALLERGIES Propensity to adverse reactions Active 2020-04 21:52: 10 Medications Ordered Medication Name Filled Medication Name Start Date Stop Date Current Medication? Ordering Clinician Indication Dosage Frequency Signature (SIG) Comments Components Fluad Quad [id number](6 5yr up)(PF) 60 mcg (15 mcg x 4)/0.5mL IM syringe 2020-04 0-15 00:00: 00 02-09 00:00 :00 No [id number] Per instruc tions Per instructio ns (route: intramuscu lar) Med Classific ation: Biologica ls latanoprost 0.005 % eye drops 8-14 00:00: 00 Yes [id number] GLAUCOMA 1 drops BEDTIME 1 drops BEDTIME (route: ophthalmic (eye)) Med Classific ation: Ophthalmi c Agents finasteride 5 mg tablet 2020-04 0-28 00:00: 00 Yes [id number] PROSTAE CANCER 1 tablet EVERY DAY 1 tablet EVERY DAY (route: oral) Med Classific ation: Genitouri nary Therapy meloxicam 15 mg tablet 11-23 00:00: 00 Yes [id number] FOR PAIN Per instruc tions DAILY WITH FOOD NEEDED Per instructio ns DAILY WITH FOOD NEEDED (route: oral) Med Classific ation: Analgesic , Anti-infl ammatory or Antipyret ic atorvastati n 20 mg tablet 2020-04 0-19 00:00: 00 Yes [id number] LOWERS CHOLESTEROL 1 tablet BEDTIME 1 tablet BEDTIME (route: oral) Med Classific ation: Cardiovas cular Therapy Agents hydrochloro thiazide 25 mg tablet 8-31 00:00: 00 Yes [id number] CONTROL BP 1 tablet DAILY 1 tablet DAILY (route: oral) Med Classific ation: Cardiovas cular Therapy Agents atorvastati n 20 mg tablet -19 00:00: 00 02-09 00:00 :00 No [id number] Per instruc tions DAILY Per instructio ns DAILY (route: oral) Med Classific ation: Cardiovas cular Therapy Agents amlodipine 2.5 mg tablet 9-07 00:00: 00 02-23 23:59 :00 No [id number] CONTROL BP 1 tablet DAILY 1 tablet DAILY (route: oral) Med Classific ation: Cardiovas cular Therapy Agents finasteride 5 mg tablet 2020-04 0-24 00:00: 00 02-09 00:00 :00 No [id number] Per instruc tions Per instructio ns (route: oral) Med Classific ation: Genitouri nary Therapy lisinopril 10 mg tablet 2020-04 00:00: 00 Yes [id number] CONTROL BP 1 tablet DAILY 1 tablet DAILY (route: oral) Med Classific ation: Cardiovas cular Therapy Agents Aspirin Low Dose 81 mg tablet,bessie yed release 2020-04 00:00: 00 Yes [id number] PREVENT BLOOD CLOTS 1 tablet 2 TIMES DAILY 1 tablet 2 TIMES DAILY (route: oral) Med Classific ation: Hematolog ical Agents hydromorpho ne 2 mg tablet 2020-04 00:00: 00 Yes [id number] PAIN CONTROL 1-2 tablet NEEDED 1-2 tablet NEEDED (route: oral) Med Classific ation: Analgesic , Anti-infl ammatory or Antipyret ic methocarbam ol 500 mg tablet 2020-04 00:00: 00 Yes [id number] MUSCLE SPASMS 1 tablet NEEDED 1 tablet NEEDED (route: oral) Med Classific ation: Locomotor System omeprazole 20 mg capsule,del ayed release 2020-04 00:00: 00 Yes [id number] GERD 1 capsule DAILY 1 capsule DAILY (route: oral) Med Classific ation: Gastroint estinal Therapy Agents amlodipine 5 mg tablet 2020-04 00:00: 00 Yes [id number] HTN 1 tablet EVERY AM 1 tablet EVERY AM (route: oral) Med Classific ation: Cardiovas cular Therapy Agents Immunizations Ordered Immunization Name Filled Immunization Name Date Status Comments Refusal Reason DOSE #2, COVID-19 VACCINE 2020-05-24 00:00:00 DOSE #1, COVID-19 VACCINE 2020-05-03 00:00:00 Vital Signs Vital Name Observation Time Observation Value Commen ts Temperature 2021-03-03 12:01:00.000 97.2 [degF] Temperature 2021-03-02 13:44:00.000 96 [degF] Temperature 2021-03-01 14:13:00.000 96.6 [degF] Temperature 2021-02-25 11:29:00.000 97.1 [degF] Temperature 2021-02-23 12:48:00.000 97.1 [degF] Temperature 2021-02-22 14:09:00.000 96.8 [degF] Temperature 2021-02-18 11:04:00.000 97.3 [degF] Temperature 2021-02-17 12:21:00.000 98.2 [degF] Temperature 2021-02-16 13:50:00.000 97.1 [degF] Temperature 2021-02-15 12:29:00.000 98.4 [degF] Temperature 2021-02-14 12:07:00.000 97 [degF] Temperature 2021-02-11 15:44:00.000 96.6 [degF] Temperature 2021-02-10 12:26:00.000 97.9 [degF] Temperature 2021-02-09 13:51:00.000 97.6 [degF] Height 2021-02-09 13:51:00.000 67 [in_us] Pulse 2021-03-03 12:01:00.000 83 /min Pulse 2021-03-02 13:44:00.000 80 /min Pulse 2021-03-01 14:13:00.000 93 /min Pulse 2021-02-25 11:29:00.000 71 /min Pulse 2021-02-23 12:48:00.000 78 /min Pulse 2021-02-22 14:16:00.000 71 /min Pulse 2021-02-18 11:04:00.000 68 /min Pulse 2021-02-17 12:21:00.000 68 /min Pulse 2021-02-16 13:50:00.000 78 /min Pulse 2021-02-15 12:29:00.000 80 /min Pulse 2021-02-14 12:07:00.000 65 /min Pulse 2021-02-11 15:44:00.000 72 /min Pulse 2021-02-10 12:26:00.000 72 /min Pulse 2021-02-09 13:51:00.000 70 /min O2 Saturation (%) 2021-03-02 13:44:00.000 98 % O2 Saturation (%) 2021-02-25 11:29:00.000 98 % O2 Saturation (%) 2021-02-23 12:48:00.000 99 % O2 Saturation (%) 2021-02-22 14:09:00.000 98 % O2 Saturation (%) 2021-02-18 11:04:00.000 96 % O2 Saturation (%) 2021-02-17 12:22:00.000 99 % O2 Saturation (%) 2021-02-16 13:50:00.000 98 % O2 Saturation (%) 2021-02-15 12:29:00.000 100 % O2 Saturation (%) 2021-02-14 12:07:00.000 93 % O2 Saturation (%) 2021-02-10 12:26:00.000 96 % O2 Saturation (%) 2021-02-09 13:51:00.000 95 % Respirations 2021-03-03 12:01:00.000 18 /min Respirations 2021-03-02 13:44:00.000 18 /min Respirations 2021-03-01 14:13:00.000 18 /min Respirations 2021-02-25 11:29:00.000 18 /min Respirations 2021-02-23 12:48:00.000 18 /min Respirations 2021-02-22 14:09:00.000 18 /min Respirations 2021-02-18 11:04:00.000 18 /min Respirations 2021-02-17 12:21:00.000 18 /min Respirations 2021-02-16 13:50:00.000 18 /min Respirations 2021-02-15 12:29:00.000 18 /min Respirations 2021-02-14 12:07:00.000 18 /min Respirations 2021-02-11 15:44:00.000 18 /min Respirations 2021-02-10 12:26:00.000 18 /min Respirations 2021-02-09 13:51:00.000 18 /min Weight (lbs) 2021-02-09 13:51:00.000 242 [lb_av] Systolic Blood Pressure 2021-03-03 12:01:00.000 142 mm [Hg] Systolic Blood Pressure 2021-03-02 13:44:00.000 130 mm [Hg] Systolic Blood Pressure 2021-03-01 14:13:00.000 140 mm [Hg] Systolic Blood Pressure 2021-02-25 11:29:00.000 134 mm [Hg] Systolic Blood Pressure 2021-02-23 12:48:00.000 142 mm [Hg] Systolic Blood Pressure 2021-02-22 14:09:00.000 116 mm [Hg] Systolic Blood Pressure 2021-02-18 11:04:00.000 150 mm [Hg] Systolic Blood Pressure 2021-02-17 12:21:00.000 160 mm [Hg] Systolic Blood Pressure 2021-02-16 13:50:00.000 148 mm [Hg] Systolic Blood Pressure 2021-02-15 12:29:00.000 140 mm [Hg] Systolic Blood Pressure 2021-02-14 12:07:00.000 140 mm [Hg] Systolic Blood Pressure 2021-02-11 15:44:00.000 130 mm [Hg] Systolic Blood Pressure 2021-02-10 12:26:00.000 128 mm [Hg] Systolic Blood Pressure 2021-02-09 13:51:00.000 116 mm [Hg] Diastolic Blood Pressure 2021-03-03 12:01:00.000 80 mm [Hg] Diastolic Blood Pressure 2021-03-02 13:44:00.000 80 mm [Hg] Diastolic Blood Pressure 2021-03-01 14:13:00.000 80 mm [Hg] Diastolic Blood Pressure 2021-02-25 11:29:00.000 85 mm [Hg] Diastolic Blood Pressure 2021-02-23 12:48:00.000 80 mm [Hg] Diastolic Blood Pressure 2021-02-22 14:09:00.000 70 mm [Hg] Diastolic Blood Pressure 2021-02-18 11:04:00.000 84 mm [Hg] Diastolic Blood Pressure 2021-02-17 12:21:00.000 80 mm [Hg] Diastolic Blood Pressure 2021-02-16 13:50:00.000 78 mm [Hg] Diastolic Blood Pressure 2021-02-15 12:29:00.000 80 mm [Hg] Diastolic Blood Pressure 2021-02-14 12:07:00.000 88 mm [Hg] Diastolic Blood Pressure 2021-02-11 15:44:00.000 88 mm [Hg] Diastolic Blood Pressure 2021-02-10 12:26:00.000 74 mm [Hg] Diastolic Blood Pressure 2021-02-09 13:51:00.000 70 mm [Hg] Plan of Treatment Planned Activity Planned Date Details Comments Future Scheduled Test SKILLED NU RSE TO ASSESS, EVALUATE, AND DEVELOP AN INDIVIDUALIZED PLAN OF CARE. AGENCY MAY ACCEPT ORDERS FROM CONSULTING PHYSICIANS DR LOLA SERRANO TO OBSERVE/ASSESS RISK FOR FALLS AND INSTRUCT IN FALL PREVENTION, HOME SAFETY, MEDICATION MANAGEMENT, INFECTION PREVENTION, AND NUTRITION MANAGEMENT. SN MAY PERFORM O2 SATURATION LEVEL ON ADMISSION AND PRN FOR RESP CHANGES ASSESS PATIENT, WITH NOTIFICATION TO THE PHYSICIAN IF SATURATION IS 90% IN THE ABSENCE OF MORE SPECIFIC PARAMETERS FROM THE PHYSICIAN. AGENCY MAY PERFORM A RESUMPTION OF CARE VISIT FOLLOWING ANY HOSPITAL ADMISSION. SKILLED NURSE TO ASSESS/EVALUATE CO-MORBID CONDITIONS AND ANY NEW CONDITIONS THAT PRESENT THEMSELVES DURING THIS EPISODE TO IDENTIFY CHANGES AND INTERVENE TO MINIMIZE COMPLICATIONS. [code = SKILLED NURSE TO ASSESS, EVALUATE, AND DEVELOP AN INDIVIDUALIZED PLAN OF CARE. AGENCY MAY ACCEPT ORDERS FROM CONSULTING PHYSICIANS DR LOLA SERRANO TO OBSERVE/ASSESS RISK FOR FALLS AND INSTRUCT IN FALL PREVENTION, HOME SAFETY, MEDICATION MANAGEMENT, INFECTION PREVENTION, AND NUTRITION MANAGEMENT. SN MAY PERFORM O2 SATURATION LEVEL ON ADMISSION AND PRN FOR RESP CHANGES ASSESS PATIENT, WITH NOTIFICATION TO THE PHYSICIAN IF SATURATION IS 90% IN THE ABSENCE OF MORE SPECIFIC PARAMETERS FROM THE PHYSICIAN. AGENCY MAY PERFORM A RESUMPTION OF CARE VISIT FOLLOWING ANY HOSPITAL ADMISSION. SKILLED NURSE TO ASSESS/EVALUATE CO-MORBID CONDITIONS AND ANY NEW CONDITIONS THAT PRESENT THEMSELVES DURING THIS EPISODE TO IDENTIFY CHANGES AND INTERVENE TO MINIMIZE COMPLICATIONS.] Future Scheduled Test MEDICATION MANAGEMENT; SKILLED NURSE TO REVIEW MEDICATIONS FOR INTERACTIONS, EFFECTIVENESS OF DRUG THERAPY, AND SIGNS/SYMPTOMS OF ADVERSE REACTIONS. MAY INSTRUCT AND REINFORCE MEDICATION TEACHING RELATED TO THE USE OF MEDICATIONS, DOSAGE, FREQUENCY, PURPOSE, SIDE EFFECTS, AND TO REPORT COMPLICATIONS. [code = MEDICATION MANAGEMENT; SKILLED NURSE TO REVIEW MEDICATIONS FOR INTERACTIONS, EFFECTIVENESS OF DRUG THERAPY, AND SIGNS/SYMPTOMS OF ADVERSE REACTIONS. MAY INSTRUCT AND REINFORCE MEDICATION TEACHING RELATED TO THE USE OF MEDICATIONS, DOSAGE, FREQUENCY, PURPOSE, SIDE EFFECTS, AND TO REPORT COMPLICATIONS.] Future Scheduled Test RISK FOR H OSPITALIZATION; SKILLED NURSE TO INSTRUCT PATIENT/CAREGIVER ON RISK FOR HOSPITALIZATION, TEACH SIGNS AND SYMPTOMS THAT PUT PATIENT AT RISK, WHEN TO NOTIFY NURSE OF COMPLICATIONS/DECLINE, AND WHEN TO CALL 911. SKILLED NURSE TO INSTRUCT PATIENT/CAREGIVER ON: SIGNS AND SYMPTOMS TO BE ON ALERT FOR EARLY INTERVENTION, PRIOR TO NEEDING EMERGENCY SERVICES CALL [facility] NURSE TO KEEP [place] CRUSHER SYMPTOM REPORT FOR VISIBLE REFERENCE NOTIFY SKILLED NURSE/PHYSICIAN FOR DECLINE IN STATS WHEN AND HOW TO CALL HOME HEALTH AGENCY FACILITATE PHYSICIAN FOLLOW UP APPOINTMENT IDENTIFY SOCIOECONOMIC CONCERNS AND MAKE APPROPRIATE REFERRAL NEEDED [code = RISK FOR HOSPITALIZATION; SKILLED NURSE TO INSTRUCT PATIENT/CAREGIVER ON RISK FOR HOSPITALIZATION, TEACH SIGNS AND SYMPTOMS THAT PUT PATIENT AT RISK, WHEN TO NOTIFY NURSE OF COMPLICATIONS/DECLINE, AND WHEN TO CALL 911. SKILLED NURSE TO INSTRUCT PATIENT/CAREGIVER ON: SIGNS AND SYMPTOMS TO BE ON ALERT FOR EARLY INTERVENTION, PRIOR TO NEEDING EMERGENCY SERVICES CALL [facility] NURSE TO KEEP [place] CRUSHER SYMPTOM REPORT FOR VISIBLE REFERENCE NOTIFY SKILLED NURSE/PHYSICIAN FOR DECLINE IN STATS WHEN AND HOW TO CALL HOME HEALTH AGENCY FACILITATE PHYSICIAN FOLLOW UP APPOINTMENT IDENTIFY SOCIOECONOMIC CONCERNS AND MAKE APPROPRIATE REFERRAL NEEDED] Future Scheduled Test SKILLED NU RSE TO PERFORM/TEACH INCISION CARE TO R HIP: CURRENTLY HAS NON-REMOVABLE DRESSING IN PLACE UNTIL 02/22 [code = SKILLED NURSE TO PERFORM/TEACH INCISION CARE TO R HIP: CURRENTLY HAS NON-REMOVABLE DRESSING IN PLACE UNTIL 02/22 ] Future Scheduled Test PAIN MANAG EMENT; SKILLED NURSE TO OBSERVE, ASSESS, AND PROVIDE EDUCATION ON PAIN MANAGEMENT TECHNIQUES. [code = PAIN MANAGEMENT; SKILLED NURSE TO OBSERVE, ASSESS, AND PROVIDE EDUCATION ON PAIN MANAGEMENT TECHNIQUES.] Future Scheduled Test FALL REDUC TION MANAGEMENT; NURSING TO PROVIDE SKILLED ASSESSMENT, EDUCATION, AND INTERVENTION TO IDENTIFY FALL RISK FACTORS SUCH MEDICATIONS THAT MAY CAUSE DIZZINESS, CHRONIC DISEASES, PSYCHOLOGICAL FACTORS, AND EMPOWER/EDUCATE PATIENT/CAREGIVER TO MINIMIZE FALL RISK. [code = FALL REDUCTION MANAGEMENT; NURSING TO PROVIDE SKILLED ASSESSMENT, EDUCATION, AND INTERVENTION TO IDENTIFY FALL RISK FACTORS SUCH MEDICATIONS THAT MAY CAUSE DIZZINESS, CHRONIC DISEASES, PSYCHOLOGICAL FACTORS, AND EMPOWER/EDUCATE PATIENT/CAREGIVER TO MINIMIZE FALL RISK.] Future Scheduled Test PHYSICAL T HERAPIST TO EVALUATE FOR POST SURGICAL RECOVERY [code = PHYSICAL THERAPIST TO EVALUATE FOR POST SURGICAL RECOVERY ] Future Scheduled Test OCCUPATION AL THERAPIST TO EVALUATE FOR SAFETY IN ADLS [code = OCCUPATIONAL THERAPIST TO EVALUATE FOR SAFETY IN ADLS ] Future Scheduled Test AGENCY MAY PERFORM A RESUMPTION OF CARE VISIT FOLLOWING ANY HOSPITAL ADMISSION. PHYSICAL THERAPY TO EVALUATE, ASSESS AND MONITOR, PROVIDE SKILLED THERAPEUTIC INTERVENTION, ACTIVITY, EDUCATION, AND TRAINING TO ADDRESS: TRANSFER TRAINING (PT) GAIT TRAINING (PT) NEUROMUSCULAR RE-EDUCATION / BALANCE RETRAINING (PT) THERAPEUTIC EXERCISES (PT) PAIN MANAGEMENT (PT) ORTHOPEDIC SURGICAL AFTERCARE (PT) MAY TEACH PATIENT APPLICATION OF CRYOTHERAPY FOR PAIN AND/OR SWELLING UP TO 20 MIN AT A TIME OVER INCISION/JOINT HIP REPLACEMENT SELF-MANAGEMENT (PT) IDENTIFY FALL RISK FACTORS AND ESTABLISH HOME EXERCISE PROGRAM TO MINIMIZE FALL RISK (PT) [code = AGENCY MAY PERFORM A RESUMPTION OF CARE VISIT FOLLOWING ANY HOSPITAL ADMISSION. PHYSICAL THERAPY TO EVALUATE, ASSESS AND MONITOR, PROVIDE SKILLED THERAPEUTIC INTERVENTION, ACTIVITY, EDUCATION, AND TRAINING TO ADDRESS: TRANSFER TRAINING (PT) GAIT TRAINING (PT) NEUROMUSCULAR RE-EDUCATION / BALANCE RETRAINING (PT) THERAPEUTIC EXERCISES (PT) PAIN MANAGEMENT (PT) ORTHOPEDIC SURGICAL AFTERCARE (PT) MAY TEACH PATIENT APPLICATION OF CRYOTHERAPY FOR PAIN AND/OR SWELLING UP TO 20 MIN AT A TIME OVER INCISION/JOINT HIP REPLACEMENT SELF-MANAGEMENT (PT) IDENTIFY FALL RISK FACTORS AND ESTABLISH HOME EXERCISE PROGRAM TO MINIMIZE FALL RISK (PT)] Goal 2021-03-03 Patient Goal - I WANT TO FUL LY RECOVER Goal Provider Goal - A PLAN OF CARE WILL BE ESTABLISHED THAT MEETS THE PATIENTS NEEDS. PATIENT WILL DEMONSTRATE OXYGEN SATURATION WITHIN NORMAL LIMITS OR PATIENTS OPTIMAL LEVEL ESTABLISHED BY THE PHYSICIAN THROUGHOUT CARE. CHANGES TO CO-MORBID CONDITIONS AND ANY NEW CONDITIONS WILL BE IDENTIFIED AND REPORTED TO THE PHYSICIAN. Goal Provider Goal - PATIENT/CAREGIVER TO VERBALIZE, AND CONSISTENTLY DEMONSTRATE EFFECTIVE, SAFE MANAGEMENT OF MEDICATION INCLUDING KNOWLEDGE OF EFFECTIVENESS, POTENTIAL SIDE EFFECTS AND DRUG REACTIONS AND WHEN TO CONTACT THE APPROPRIATE CARE PROVIDER. PATIENT/CAREGIVER WILL BE ABLE TO VERBALIZE UNDERSTANDING OF MEDICATION REGIMEN AND ACCURATELY TAKE MEDICATIONS PRESCRIBED WITHOUT ADVERSE EFFECTS BY 04/09/21 Goal Provider Goal - PATIENT/CAREGIVER WILL VERBALIZE UNDERSTANDING OF SIGNS AND SYMPTOMS THAT PUT THE PATIENT AT RISK FOR HOSPITALIZATION, WHEN TO NOTIFY SN OF COMPLICATIONS/DECLINE AND WHEN TO CALL 911. Goal Provider Goal - PATIENT / CAREGIVER WILL VERBALIZE / DEMONSTRATE ABILITY TO PERFORM WOUND CARE. WOUND STATUS WILL IMPROVE EVIDENCED BY A DECREASE IN SIZE, DRAINAGE, ABSENCE OF INFECTION, AND DECREASED PAIN BY 03/09 Goal Provider Goal - PATIENT / CAREGIVER WILL VERBALIZE / DEMONSTRATE UNDERSTANDING OF PAIN CONTROL MEASURES BY 04/09/21 Goal Provider Goal - PATIENT/CAREGIVER ABLE TO IDENTIFY FALL RISK FACTORS AND IMPLEMENT STRATEGIES TO MINIMIZE FALL RISK. PATIENT/CAREGIVER WILL VERBALIZE/DEMONSTRATE AN ABILITY TO ADHERE TO FALL REDUCTION SELF MANAGEMENT AND LIFE-STYLE CHANGES AT DISCHARGE. PERSONAL GOAL(S) STATED BY PATIENT/CAREGIVER WILL BE MET BY 04/09/21 Goal Provider Goal - Goal Provider Goal - Goal Provider Goal - PATIENT WILL DEMO INDEP PERFORMANCE OF HOUSEHOLD TRANSFERS WITH FWW USE IN 4 WEEKS AND WITH SPC USE IN 8 WEEKS TO PROMOTE IMPROVED FUNCTIONAL INDEP PATIENT WILL DEMO INDEP PERFORMANCE OF HOUSEHOLD GAIT WITH FWW USE IN 6 WEEKS AND WITH SPC USE INCLUDING STAIRS IN 8 WEEKS TO PROMOTE IMPROVED FUNCTIONAL INDEP PATIENT WILL DEMO IMPROVED TUG SCORE TO 15 SECONDS AND 19 TINETTI SCORE IN 8 WEEKS TO PROMOTE IMPROVED BALANCE INPUT INTEGRATION PATIENT WILL DEMO INDEP PERFORMANCE OF STANDING THEREX AND BALANCE ACTIVITY IN 4 WEEKS TO PROMOTE IMPROVED FUNCTIONAL MOBILITY PATIENT WILL IMPROVE LE STRENGTH LEVELS TO GROSSLY 4/5 IN 8 WEEKS TO PROMOTE IMPROVED FUNCTIONAL INDEP PT GOAL: PATIENT/CAREGIVER WILL VERBALIZE UNDERSTANDING OF PAIN MANAGEMENT BY DISCHARGE. PATIENT WILL DEMONSTRATE NORMAL HEALING FOLLOWING SURGERY WITH NO COMPLICATIONS BY DISCHARGE. PT GOAL: PATIENT WILL DEMONSTRATE OPTIMAL OUTCOMES INCLUDING INCREASED ROM AND STRENGTH WITH NO COMPLICATIONS FOLLOWING GENTRY BY DISCHARGE. PATIENT/CAREGIVER WILL DEMONSTRATE ADHERENCE TO FALL REDUCTION SELF MANAGEMENT TO MINIMIZE FALL RISK BY DISCHARGE. Reason for Visit [facility] Encounters Start Date/Time End Date/Time Encounter Type Admission Type Attending [facility] Care Department Encounter ID Discharge Date Discharge Status Discharge Condition Discharge Reason Percent Goals Met 2021-02-09 00:00:00 2021-03-03 00:00:00 Outpatient NEW ADMISSION CAT FLOYD [facility] [id number] 2021-03-03 00:00:00 DISCHARGE TO HOME OR SELF CARE INDEPENDEN T IN THE COMMUNITY HH OR PAL- GOALS MET 95.45
== END 2024-03-12 11:55 | disposition home or self-care (01) ==
PROVIDERS: PCP Internal Medicine; Visit Provider Urology
DX: C61 Malignant neoplasm of prostate (principal)
CPT/HCPCS: 99213

== ENCOUNTER → 2024-03-12 10:54 | Outpatient (BNVA) | payer MEDICARE, OTHER, SELFPAY | PROVIDERS: PCP Internal Medicine; Visit Provider Urology | DX: C61 Malignant neoplasm of prostate (principal) | CPT/HCPCS: 99212 ==

== ENCOUNTER 2024-03-27 10:28 | Outpatient (AMB) | payer MEDICARE, OTHER, SELFPAY ==
--- OUTSIDE RECORDS SUMMARY | 2024-03-27 10:30 | XMS_ITS | Clinical Summary ---
Author Organization Unknown Care Team Providers Care Wall Scraper Name Role Phone LOLA GUDINO, ROLANDA BEY Unavailable Unavaila troy FLOYD RN, CAT Unavailable Unavailable KIRSTEN PT, ATILIO Unavailable Unavailable SPAFFORD OT, NOELLE Unavailable Unavailable MBURU SECURITIES COMPLIANCE EXAMINER, HUSEYIN Unavailable Unavailable ANDRADE BLEACH MACHINE OPERATOR, CHRISTA Unavailable Unavailable GARCIA BLEACH MACHINE OPERATOR, CHI Unavailable Unavailable CONDINO PATIENT FINANCIAL SERVICES SPECIALIST/KELLOGG, CLAUS Unavailable Unav ailable Payers Payer Name Policy Type Policy Number Effective Date Expira tion Date MEDICARE.NGS.PDGM [id number] Problems Condition Name Condition Details Condition Category [...] Frequency Signature (SIG) Comments Components Fluad Quad [id number](6 5yr up)(PF) 60 mcg (15 mcg x 4)/0.5mL IM syringe 2020-04 0-15 00:00: 00 02-09 00:00 :00 No [id number] Per instruc tions Per instructio ns (route: intramuscu lar) Med Classific ation: Biologica ls latanoprost 0.005 % eye drops 8-14 00:00: 00 Yes [id number] GLAUCOMA 1 drops BEDTIME 1 drops BEDTIME (route: ophthalmic (eye)) Med Classific ation: Ophthalmi c Agents finasteride 5 mg tablet 2020-04 0-28 00:00: 00 Yes [id number] PROSTAE CANCER 1 tablet EVERY DAY 1 tablet EVERY DAY (route: oral) Med Classific ation: Genitouri nary Therapy meloxicam 15 mg tablet 11-23 00:00: 00 Yes [id number] FOR PAIN Per instruc tions DAILY WITH FOOD NEEDED Per instructio ns DAILY WITH FOOD NEEDED (route: oral) Med Classific ation: Analgesic , Anti-infl ammatory or Antipyret ic atorvastati n 20 mg tablet 2020-04 0-19 00:00: 00 Yes [id number] LOWERS CHOLESTEROL 1 tablet BEDTIME 1 tablet BEDTIME (route: oral) Med Classific ation: Cardiovas cular Therapy Agents hydrochloro thiazide 25 mg tablet 8-31 00:00: 00 Yes [id number] CONTROL BP 1 tablet DAILY 1 tablet DAILY (route: oral) Med Classific ation: Cardiovas cular Therapy Agents atorvastati n 20 mg tablet -19 00:00: 00 02-09 00:00 :00 No [id number] Per instruc tions DAILY Per instructio ns DAILY (route: oral) Med Classific ation: Cardiovas cular Therapy Agents amlodipine 2.5 mg tablet 9-07 00:00: 00 02-23 23:59 :00 No [id number] CONTROL BP 1 tablet DAILY 1 tablet DAILY (route: oral) Med Classific ation: Cardiovas cular Therapy Agents finasteride 5 mg tablet 2020-04 0-24 00:00: 00 02-09 00:00 :00 No [id number] Per instruc tions Per instructio ns (route: oral) Med Classific ation: Genitouri nary Therapy lisinopril 10 mg tablet 2020-04 00:00: 00 Yes [id number] CONTROL BP 1 tablet DAILY 1 tablet DAILY (route: oral) Med Classific ation: Cardiovas cular Therapy Agents Aspirin Low Dose 81 mg tablet,bessie yed release 2020-04 00:00: 00 Yes [id number] PREVENT BLOOD CLOTS 1 tablet 2 TIMES DAILY 1 tablet 2 TIMES DAILY (route: oral) Med Classific ation: Hematolog ical Agents hydromorpho ne 2 mg tablet 2020-04 00:00: 00 Yes [id number] PAIN CONTROL 1-2 tablet NEEDED 1-2 tablet NEEDED (route: oral) Med Classific ation: Analgesic , Anti-infl ammatory or Antipyret ic methocarbam ol 500 mg tablet 2020-04 00:00: 00 Yes [id number] MUSCLE SPASMS 1 tablet NEEDED 1 tablet NEEDED (route: oral) Med Classific ation: Locomotor System omeprazole 20 mg capsule,del ayed release 2020-04 00:00: 00 Yes [id number] GERD 1 capsule DAILY 1 capsule DAILY (route: oral) Med Classific ation: Gastroint estinal Therapy Agents amlodipine 5 mg tablet 2020-04 00:00: 00 Yes [id number] HTN 1 tablet EVERY AM 1 tablet [...] EMERGENCY SERVICES CALL [facility] NURSE TO KEEP FISH CONSERVATIONIST SYMPTOM REPORT FOR VISIBLE REFERENCE NOTIFY SKILLED [...] EMERGENCY SERVICES CALL [facility] NURSE TO KEEP FISH CONSERVATIONIST SYMPTOM REPORT FOR VISIBLE REFERENCE NOTIFY SKILLED [...] End Date/Time Encounter Type Admission Type Attending [facility] Care Department Encounter ID Discharge Date Discharge Status Discharge Condition Discharge Reason Percent Goals Met 2021-02-09 00:00:00 2021-03-03 00:00:00 Outpatient NEW ADMISSION CAT FLOYD [facility] [id number] 2021-03-03 00:00:00 DISCHARGE TO HOME OR SELF CARE INDEPENDEN T IN THE COMMUNITY HH OR PAL- GOALS MET 95.45
--- OUTSIDE RECORDS SUMMARY | 2024-03-27 10:30 | XMS_ITS | Clinical Summary ---
Author Organization Unknown Care Team Providers Care Chart Clerk Name Role Phone LOLA GUDINO, ROLANDA BEY Unavailable Unavaila troy FLOYD RN, CAT Unavailable Unavailable KIRSTEN PT, ATILIO Unavailable Unavailable SPAFFORD OT, NOELLE Unavailable Unavailable MBURU PRINT LINE INSPECTOR, HUSEYIN Unavailable Unavailable ANDRADE BEAM HOUSE INSPECTOR, CHRISTA Unavailable Unavailable GARCIA BEAM HOUSE INSPECTOR, CHI Unavailable Unavailable CONDINO SUPERINTENDENT DRILLING AND PRODUCTION/KELLOGG, CLAUS Unavailable Unav ailable Payers Payer Name Policy Type Policy Number Effective Date Expira tion Date MEDICARE.NGS.PDGM [id number] Problems Condition Name Condition Details Condition Category [...] Frequency Signature (SIG) Comments Components Fluad Quad [id number](6 5yr up)(PF) 60 mcg (15 mcg x 4)/0.5mL IM syringe 2020-04 0-15 00:00: 00 02-09 00:00 :00 No [id number] Per instruc tions Per instructio ns (route: intramuscu lar) Med Classific ation: Biologica ls latanoprost 0.005 % eye drops 8-14 00:00: 00 Yes [id number] GLAUCOMA 1 drops BEDTIME 1 drops BEDTIME (route: ophthalmic (eye)) Med Classific ation: Ophthalmi c Agents finasteride 5 mg tablet 2020-04 0-28 00:00: 00 Yes [id number] PROSTAE CANCER 1 tablet EVERY DAY 1 tablet EVERY DAY (route: oral) Med Classific ation: Genitouri nary Therapy meloxicam 15 mg tablet 11-23 00:00: 00 Yes [id number] FOR PAIN Per instruc tions DAILY WITH FOOD NEEDED Per instructio ns DAILY WITH FOOD NEEDED (route: oral) Med Classific ation: Analgesic , Anti-infl ammatory or Antipyret ic atorvastati n 20 mg tablet 2020-04 0-19 00:00: 00 Yes [id number] LOWERS CHOLESTEROL 1 tablet BEDTIME 1 tablet BEDTIME (route: oral) Med Classific ation: Cardiovas cular Therapy Agents hydrochloro thiazide 25 mg tablet 8-31 00:00: 00 Yes [id number] CONTROL BP 1 tablet DAILY 1 tablet DAILY (route: oral) Med Classific ation: Cardiovas cular Therapy Agents atorvastati n 20 mg tablet -19 00:00: 00 02-09 00:00 :00 No [id number] Per instruc tions DAILY Per instructio ns DAILY (route: oral) Med Classific ation: Cardiovas cular Therapy Agents amlodipine 2.5 mg tablet 9-07 00:00: 00 02-23 23:59 :00 No [id number] CONTROL BP 1 tablet DAILY 1 tablet DAILY (route: oral) Med Classific ation: Cardiovas cular Therapy Agents finasteride 5 mg tablet 2020-04 0-24 00:00: 00 02-09 00:00 :00 No [id number] Per instruc tions Per instructio ns (route: oral) Med Classific ation: Genitouri nary Therapy lisinopril 10 mg tablet 2020-04 00:00: 00 Yes [id number] CONTROL BP 1 tablet DAILY 1 tablet DAILY (route: oral) Med Classific ation: Cardiovas cular Therapy Agents Aspirin Low Dose 81 mg tablet,bessie yed release 2020-04 00:00: 00 Yes [id number] PREVENT BLOOD CLOTS 1 tablet 2 TIMES DAILY 1 tablet 2 TIMES DAILY (route: oral) Med Classific ation: Hematolog ical Agents hydromorpho ne 2 mg tablet 2020-04 00:00: 00 Yes [id number] PAIN CONTROL 1-2 tablet NEEDED 1-2 tablet NEEDED (route: oral) Med Classific ation: Analgesic , Anti-infl ammatory or Antipyret ic methocarbam ol 500 mg tablet 2020-04 00:00: 00 Yes [id number] MUSCLE SPASMS 1 tablet NEEDED 1 tablet NEEDED (route: oral) Med Classific ation: Locomotor System omeprazole 20 mg capsule,del ayed release 2020-04 00:00: 00 Yes [id number] GERD 1 capsule DAILY 1 capsule DAILY (route: oral) Med Classific ation: Gastroint estinal Therapy Agents amlodipine 5 mg tablet 2020-04 00:00: 00 Yes [id number] HTN 1 tablet EVERY AM 1 tablet [...] EMERGENCY SERVICES CALL [facility] NURSE TO KEEP TRANSFER MAN SYMPTOM REPORT FOR VISIBLE REFERENCE NOTIFY SKILLED [...] EMERGENCY SERVICES CALL [facility] NURSE TO KEEP TRANSFER MAN SYMPTOM REPORT FOR VISIBLE REFERENCE NOTIFY SKILLED [...] End Date/Time Encounter Type Admission Type Attending [facility] Care Department Encounter ID Discharge Date Discharge Status Discharge Condition Discharge Reason Percent Goals Met 2021-02-09 00:00:00 2021-03-03 00:00:00 Outpatient NEW ADMISSION CAT FLOYD [facility] [id number] 2021-03-03 00:00:00 DISCHARGE TO HOME OR SELF CARE INDEPENDEN T IN THE COMMUNITY HH OR [facility]- GOALS MET 95.45
[2024-03-27 10:41] VITALS: BP 135/82; PULSE 83; O2SAT 98; BMI 36.5
--- NOTE | 2024-03-27 10:41 | A.OFFVIS_ITS ---
Intake Vital Signs 03/27/24 10:41 Height 5 ft 9 in Weight 247 lb BMI 36.5 BP 135/82 Blood Pressure Location Lt brachial Position Sitting Pulse 83 Pulse Source Pulse Oximeter Pulse Oximetry (%) 98 Oxygen Delivery Method Room Air Intake Visit Reasons: Rsched from 01/16 Intake Note: Pt is here today for her AWV: Last colonoscopy 04/15/20 Allergies No Known Allergies Allergy (Verified 03/27/24 11:03) Medication List - Last Reconciled 03/27/24 by Kari Harvey MD amlodipine 5 mg PO DAILY atorvastatin 20 mg PO DAILY finasteride 5 mg PO DAILY 90 days hydrochlorothiazide 25 mg PO QAM latanoprost 0.005% drps ophthalmic (eye) lisinopril 10 mg PO QAM omeprazole 40 mg PO DAILY HPI Rsched from 01/16 HPI Details SWV ? 74 year old male with past medical history significant for hypertension, dyslipidemia, history of prostate cancer currently followed by Dr. Preston, and glaucoma, presents for his subsequent annual wellness visit. 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 Silvestre. Patient states that he still needs to make an appointment with him beginning of next year. He is up-to-date with his cholesterol screening and diabetes screening, done earlier this year both coming up with results within normal limits. He is up-to-date with his colon cancer screening, done by Dr. Stanley 04/15/2020, due for recheck in 2025. He is up-to-date with all his vaccinations except for the new COVID booster which he plans to get later this month. ? Medical / Social History Reviewed? Past Medical History ?Yes . ? [place] of Care / Care Team list updated ?Yes . ? Surgical/Hospitalization History ?Yes . ? Current Medications (including OTC and supplements) ?Yes . ? Family History ?Yes . ? Tobacco Control form ?Yes . ? AUDIT-C (Alcohol use) form ?Yes . ? Illicit drug use in Social History ?Yes . ? Current diagnosis of depression? ?No ? Appropriate PHQ2/PHQ9 completed ?Yes . ? Data entered by ?Ret[employer]mer and reviewed by provider ? Fall Risk ? Fall History? Have you had any falls with injury in the past year? ?No . ? Have you had two or more falls in the past year? ?No . ? Fall Risk Assessment: ?No falls in the past year . ? HRA filled out by the patient, reviewed by Provider and scanned. ? SWV ? Balance? Romberg ?Yes . ? Tandem walk ?Yes . ? Walk and Turn ?Yes . ? Rise from sit to stand ?Yes . ?Vision? Corrective lens ?Yes ? Vision screen ? Up-to-date, previously seen by Dr Root,looking for a new commercial fisher ?Hearing? Whisper test ?pass . ?Written Plan?Completed. See Patient Documents.? [facility] Medical History (Updated 03/27/24 @ 11:43 by Kari Harvey MD) History of COVID-19 Costochondritis Arthralgia of multiple sites GERD (gastroesophageal reflux disease) Glaucoma Dyslipidemia Essential hypertension Surgical History H/O total hip arthroplasty Hx of colonoscopy Status post total hip replacement, left History of wisdom tooth extraction Family History Father CHF (congestive heart failure) Glaucoma Mother HTN (hypertension) Sister No problems noted. Sister No problems noted. Son No problems noted. Son No problems noted. Son No problems noted. Social History Housing: House Alcohol intake: current Patient Tobacco Use Status: Former Tobacco user Years Smoked: 3 yrs e-Cigarette/Vaping Use: Never Used Second Hand Smoke Exposure: No service: No Current occupational status: retired Current occupation: right handed. Cognitive needs: No Hearing needs: No Vision needs: Yes Questionnaire Medicare Wellness Checkup [age] What gender do you identify with?: male During the past 4 weeks, how much have you been bothered by emotional problems such as feeling anxious, depressed, irritable, sad or downhearted, and blue?: not at all During the past 4 weeks, has your physical & emotional health limited your social activities with family, friends, neighbors, or groups?: not at all During the past 4 weeks, how much bodily pain have you generally had?: mild pain During the past 4 weeks, was someone available to help you if you needed & wanted help?: yes, as much as I wanted During the past 4 weeks, what was the hardest physical activity you could do for at least 2 minutes?: very heavy Can you get to places out of walking distance without help? (For eg., can you travel alone on buses, taxis or drive your car?): Yes Can you go shopping for groceries or clothes without someone's help?: Yes Can you prepare your own meals?: Yes Can you do your housework without help?: Yes Because of any health problems, do you need the help of another person with your personal care needs such as eating, bathing, dressing or getting around the house?: No Can you handle your own money without help?: Yes During the past 4 weeks, how would you rate your health in general?: very good During the past 4 weeks how have things been going for you?: very well; could hardly better Are you having difficulties driving your car?: no Do you always fasten your seat belt when you are in a car?: yes, usually During past 4 weeks, have you been bothered by the following: never: Falling or dizzy when standing up, Sexual problems?, Trouble eating well?, Teeth or denture problems?, Problems using the telephone? and Tiredness or fatigue? Have you fallen 2 or more times in the past year?: No Are you afraid of falling?: No Are you a smoker?: no During the past 4 weeks, how many drinks of wine, beer, or other alcoholic beverages did you have?: 1 drink or less per week Do you exercise for about 20 minutes 3 or more times a week?: yes, most of the time Have you been given information to help with the following?: no: Hazards in your house that might hurt you? and no: Keeping track of your medications? How often do you have trouble taking medicines the way you have been told to take them?: I always take medicine as prescribed How confident are you that you can control & manage most of your health problems?: very confident What is your race?: Black or Mini Mental State Exam (MMSE) Orientation What is the (year) (season) (date) (day) (month)?: year (2023), season (winter), date (03/27/2024), day () and month (march) Where are we (state) (county) (town or city) (hospital) (floor)?: state ([place]), county ([place]), town or city ([place]) and hospital/clinic ([facility] [place] Score Score: 9 Activity of Daily Living Bathing - sponge bath, tub bath or shower: receives no assistance (gets in/out by self, if usual bathing means Dressing - getting clothes from closets & drawers, including inner/outer garments & fasteners.: gets clothes & gets completely dressed without help Toileting - going to the 'toilet room' for urine/bowel elimination & cleaning self/arranging clothes: goes to toilet room, cleans self, arranges clothes without help Transfer: moves in & out of bed and chair without help (may use support object) Continence: controls urination/bowel movements completely by self Feeding: feeds self without help Total Score: 0 Information obtained from: patient Using telephone: independent Traveling: independent Shopping: independent Preparing meals: independent Housework: independent Taking medicine: independent Managing money: independent PHQ-9 Over the last 2 weeks, how often have you been bothered by any of the following problems? 1. Little interest or pleasure in doing things: not at all 2. Feeling down, depressed, or hopeless: not at all 3. Trouble falling or staying asleep, or sleeping too much: not at all 4. Feeling tired or having little energy: not at all 5. Poor appetite or overeating: not at all 6. Feeling bad about yourself - or that you are a failure or have let yourself or your family down: not at all 7. Trouble concentrating on things, such as reading the newspaper or watching television: not at all 8. Moving or speaking so slowly that other people could have noticed. Or the opposite - being so fidgety or restless that you have been moving around a lot more than usual: not at all 9. Thoughts that you would be better off or of hurting yourself in some way: not at all Total score: 0 Depression Screening Interpretation: Negative Depression Screening Done: Yes 53882 - PHQ-9 Billing: Yes Source: Developed by Drs. Dave Lu, Socorro Alfaro, Horace Mckeon and colleagues, with an educational juanita from [employer]. Physical Exam Vital Signs: Last Vital Signs Pulse 83 03/27/24 10:41 BP 142/82 H 03/27/24 10:41 Pulse Ox 98 03/27/24 10:41 Oxygen Delivery Method Room Air 03/27/24 10:41 BMI result Body Mass Index 36.5 Assessment & Plan Assessment & Plan (1) Encounter for subsequent annual wellness visit (AWV) in Medicare patient: Code(s): Z00.00 - Encounter for general adult medical examination without abnormal findings Plan: Medical wellness checklist reviewed, discussed with patient and updated. Copy given. (2) Essential hypertension: Code(s): I10 - Essential (primary) hypertension Plan: Continue amlodipine , lisinopril, and hydrochlorothiazide (3) Dyslipidemia: Code(s): E78.5 - Hyperlipidemia, unspecified Plan: Continue atorvastatin. Reminded to get his fasting labs done prior to next office visit next month (4) Glaucoma: Code(s): H40.9 - Unspecified glaucoma Qualifiers: Glaucoma type: unspecified Laterality: unspecified laterality Qualified Code(s): H40.9 - Unspecified glaucoma Plan: Currently on latanoprost, actively searching for a new commercial fisher as Dr. Root will be retiring (5) Prostate cancer: Comment: May 2016 low-grade, low volume Code(s): C61 - Malignant neoplasm of prostate Plan: Followed by Dr. Preston, continued surveillance, with follow-up scheduled in 09/19/2024 (6) Advanced directives, counseling/discussion: Code(s): Z71.89 - Other specified counseling Plan: Initiated the conversation about Advanced Directives. Advanced Directives help patients prepare for current and future decisions about their medical treatment and place of care. Discussed with patient that it is a process where a patients current condition and prognosis are reviewed, their wishes for information regarding their illness are elicited, and likely medical dilemmas are presented and options discussed. MOLST and healthcare proxy form completed today. These forms can be amended as needed, reviewed yearly and make changes as needed (7) GERD (gastroesophageal reflux disease): Code(s): K21.9 - Gastro-esophageal reflux disease without esophagitis Qualifiers: Esophagitis presence: without esophagitis Qualified Code(s): K21.9 - Gastro-esophageal reflux disease without esophagitis Plan: Controlled on omeprazole 40 mg daily Quality Reporting (2019) Depression/Bipolar (159/160/161/177) PHQ-9: Total score: 0 Coding Level of Care Code Medicare Subsequent (G0439) Diagnoses Encounter for subsequent annual wellness visit (AWV) in Medicare patient Z00.00 Essential hypertension I10 Dyslipidemia E78.5 Glaucoma, unspecified glaucoma type, unspecified laterality H40.9 Glaucoma type: unspecified Laterality: unspecified laterality Prostate cancer C61 Advanced directives, counseling/discussion Z71.89 Gastroesophageal reflux disease without esophagitis K21.9 Esophagitis presence: without esophagitis CPT Codes Advance Care Planning - Time spent: 16-45 minutes ([id number]) Additional Codes PHQ-9 - 93958 - PHQ-9 Billing: Yes ([id number]) Advance Care Planning Advance Care Planning discussion: Completed/Scanned Date of discussion: 03/27/24 Who was present: patient Forms completed: Health Care Proxy and MOLST Time spent: 16-45 minutes Actual minutes spent: 5
== END 2024-03-27 11:35 | disposition home or self-care (01) ==
PROVIDERS: PCP Internal Medicine; Visit Provider Internal Medicine
DX: Z00.00 Encounter for general adult medical examination without abnormal findings (principal); C61 Malignant neoplasm of prostate; I10 Essential (primary) hypertension; E78.5 Hyperlipidemia, unspecified; H40.9 Unspecified glaucoma; K21.9 Gastro-esophageal reflux disease without esophagitis

== ENCOUNTER → 2024-03-27 10:28 | Outpatient (BNVA) | payer MEDICARE, OTHER, SELFPAY | PROVIDERS: PCP Internal Medicine; Visit Provider Internal Medicine | DX: Z00.00 Encounter for general adult medical examination without abnormal findings (principal); I10 Essential (primary) hypertension; E78.5 Hyperlipidemia, unspecified; H40.9 Unspecified glaucoma; C61 Malignant neoplasm of prostate; K21.9 Gastro-esophageal reflux disease without esophagitis; Z71.89 Other specified counseling | CPT/HCPCS: 96127 ==

== ENCOUNTER 2024-03-31 08:33 | Outpatient (REF) | payer MEDICARE, OTHER, SELFPAY ==
--- OUTSIDE RECORDS SUMMARY | 2024-03-31 08:38 | XMS_ITS | Clinical Summary ---
Author Organization Unknown Care Team Providers Care Repossession Agent Name Role Phone LOLA GUDINO, ROLANDA BEY Unavailable Unavaila troy FLOYD RN, CAT Unavailable Unavailable KIRSTEN PT, ATILIO Unavailable Unavailable SPAFFORD OT, NOELLE Unavailable Unavailable MBURU CHOIRMASTER, HUSEYIN Unavailable Unavailable ANDRADE INDUSTRIAL RELATIONS DIRECTOR, CHRISTA Unavailable Unavailable GARCIA INDUSTRIAL RELATIONS DIRECTOR, CHI Unavailable Unavailable CONDINO CRYPTANALYST/KELLOGG, CLAUS Unavailable Unav ailable Payers Payer Name Policy Type Policy Number Effective Date Expira tion Date MEDICARE.NGS.PDGM [id number] Problems Condition Name Condition Details Condition Category [...] Frequency Signature (SIG) Comments Components Fluad Quad [id number](6 5yr up)(PF) 60 mcg (15 mcg x 4)/0.5mL IM syringe 2020-04 0-15 00:00: 00 02-09 00:00 :00 No [id number] Per instruc tions Per instructio ns (route: intramuscu lar) Med Classific ation: Biologica ls latanoprost 0.005 % eye drops 8-14 00:00: 00 Yes [id number] GLAUCOMA 1 drops BEDTIME 1 drops BEDTIME (route: ophthalmic (eye)) Med Classific ation: Ophthalmi c Agents finasteride 5 mg tablet 2020-04 0-28 00:00: 00 Yes [id number] PROSTAE CANCER 1 tablet EVERY DAY 1 tablet EVERY DAY (route: oral) Med Classific ation: Genitouri nary Therapy meloxicam 15 mg tablet 11-23 00:00: 00 Yes [id number] FOR PAIN Per instruc tions DAILY WITH FOOD NEEDED Per instructio ns DAILY WITH FOOD NEEDED (route: oral) Med Classific ation: Analgesic , Anti-infl ammatory or Antipyret ic atorvastati n 20 mg tablet 2020-04 0-19 00:00: 00 Yes [id number] LOWERS CHOLESTEROL 1 tablet BEDTIME 1 tablet BEDTIME (route: oral) Med Classific ation: Cardiovas cular Therapy Agents hydrochloro thiazide 25 mg tablet 8-31 00:00: 00 Yes [id number] CONTROL BP 1 tablet DAILY 1 tablet DAILY (route: oral) Med Classific ation: Cardiovas cular Therapy Agents atorvastati n 20 mg tablet -19 00:00: 00 02-09 00:00 :00 No [id number] Per instruc tions DAILY Per instructio ns DAILY (route: oral) Med Classific ation: Cardiovas cular Therapy Agents amlodipine 2.5 mg tablet 9-07 00:00: 00 02-23 23:59 :00 No [id number] CONTROL BP 1 tablet DAILY 1 tablet DAILY (route: oral) Med Classific ation: Cardiovas cular Therapy Agents finasteride 5 mg tablet 2020-04 0-24 00:00: 00 02-09 00:00 :00 No [id number] Per instruc tions Per instructio ns (route: oral) Med Classific ation: Genitouri nary Therapy lisinopril 10 mg tablet 2020-04 00:00: 00 Yes [id number] CONTROL BP 1 tablet DAILY 1 tablet DAILY (route: oral) Med Classific ation: Cardiovas cular Therapy Agents Aspirin Low Dose 81 mg tablet,bessie yed release 2020-04 00:00: 00 Yes [id number] PREVENT BLOOD CLOTS 1 tablet 2 TIMES DAILY 1 tablet 2 TIMES DAILY (route: oral) Med Classific ation: Hematolog ical Agents hydromorpho ne 2 mg tablet 2020-04 00:00: 00 Yes [id number] PAIN CONTROL 1-2 tablet NEEDED 1-2 tablet NEEDED (route: oral) Med Classific ation: Analgesic , Anti-infl ammatory or Antipyret ic methocarbam ol 500 mg tablet 2020-04 00:00: 00 Yes [id number] MUSCLE SPASMS 1 tablet NEEDED 1 tablet NEEDED (route: oral) Med Classific ation: Locomotor System omeprazole 20 mg capsule,del ayed release 2020-04 00:00: 00 Yes [id number] GERD 1 capsule DAILY 1 capsule DAILY (route: oral) Med Classific ation: Gastroint estinal Therapy Agents amlodipine 5 mg tablet 2020-04 00:00: 00 Yes [id number] HTN 1 tablet EVERY AM 1 tablet [...] EMERGENCY SERVICES CALL [facility] NURSE TO KEEP SAFETY DEPOSIT SUPERVISOR SYMPTOM REPORT FOR VISIBLE REFERENCE NOTIFY SKILLED [...] EMERGENCY SERVICES CALL [facility] NURSE TO KEEP SAFETY DEPOSIT SUPERVISOR SYMPTOM REPORT FOR VISIBLE REFERENCE NOTIFY SKILLED [...] End Date/Time Encounter Type Admission Type Attending [facility] Care Department Encounter ID Discharge Date Discharge Status Discharge Condition Discharge Reason Percent Goals Met 2021-02-09 00:00:00 2021-03-03 00:00:00 Outpatient NEW ADMISSION CTA FLOYD [facility] [id number] 2021-03-03 00:00:00 DISCHARGE TO HOME OR SELF CARE INDEPENDEN T IN THE COMMUNITY HH OR [facility]- GOALS MET 95.45
[2024-03-31 10:14] LABS: Alanine Aminotransferase 13 U/L (0-40); Anion Gap 11 (12-20); Aspartate Amino Transferase 24 U/L (5-37); Blood Urea Nitrogen 19 mg/dL (9-16); Calcium 9.1 mg/dL (8.4-10.2); Carbon Dioxide 27 mmol/L (22-29); Chloride 107 mmol/L (96-108); Cholesterol 215 mg/dL (<200); Estimated Glomerular Filt Rate > 60; Glucose Fasting 95 mg/dL (60-99); HDL Cholesterol 71 mg/dL (>40); LDL Cholesterol Calculated 134 mg/dL (<100); Potassium 4.1 mmol/L (3.3-5.1); Sodium 141 mmol/L (135-145); Triglycerides 50 mg/dL (<150)
== END 2024-03-31 08:34 | disposition home or self-care (01) ==
LOC: HO.HMGCLDS 08:33
PROVIDERS: PCP Internal Medicine; Visit Provider Internal Medicine
DX: E78.5 Hyperlipidemia, unspecified (principal); I10 Essential (primary) hypertension
CPT/HCPCS: 36415; 80048; 80061; 84450; 84460

== ENCOUNTER 2024-04-29 10:33 | Outpatient (AMB) | payer MEDICARE, OTHER, SELFPAY ==
[2024-04-29 11:17] VITALS: BP 126/70; PULSE 70; RESP 15; TEMP 36.6; O2SAT 95; BMI 36.8
--- NOTE | 2024-04-29 11:17 | MHC.PC.OV ---
Vital Signs 04/29/24 11:17 Height 5 ft 9 in Weight 249 lb BMI 36.8 BP 126/70 Blood Pressure Location Lt brachial Position Sitting Respiration 15 Pulse 70 Pulse Source Pulse Oximeter Temp 97.9 F Temp Source Oral Pulse Oximetry (%) 95 Oxygen Delivery Method Room Air Intake Visit Reasons: 1 month follow up Intake Note: Pt is here today for his 1mo. f/u Allergies No Known Allergies Allergy (Verified 04/29/24 12:02) Medication List - Last Reconciled 04/29/24 by Kari Harvey MD amlodipine 5 mg PO DAILY atorvastatin 20 mg PO DAILY finasteride 5 mg PO DAILY 90 days hydrochlorothiazide 25 mg PO QAM latanoprost 0.005% drps ophthalmic (eye) lisinopril 10 mg PO QAM omeprazole 40 mg PO DAILY Tobacco use date assessed: 04/29/24 Fall risk assessment: No Falls in past year Last assessed Fall Risk: 04/29/24 Dental Screening Dental Screen Date: 04/29/24 Did you have a dental visit in the last 12 months?: Yes Did you have a dental problem in the last 6 months where you did not have access to dental care?: No Was dental information given to patient?: Patient has dentist HPI HPI Comments History of Present Illness Details 74-year-old male with hypertension hyperlipidemia, here today for follow-up. Has been compliant with taking his medications, feels well, with no complaints at present time. REPLACED BY [facility] Medical History History of COVID-19 Costochondritis Arthralgia of multiple sites GERD (gastroesophageal reflux disease) Glaucoma Dyslipidemia Essential hypertension Surgical History H/O total hip arthroplasty Hx of colonoscopy Status post total hip replacement, left History of wisdom tooth extraction Family History Father CHF (congestive heart failure) Glaucoma Mother HTN (hypertension) Sister No problems noted. Sister No problems noted. Son No problems noted. Son No problems noted. Son No problems noted. Social History Housing: House Alcohol intake: current Patient Tobacco Use Status: Former Tobacco user Years Smoked: 3 yrs e-Cigarette/Vaping Use: Never Used Second Hand Smoke Exposure: No service: No Current occupational status: retired Current occupation: right handed. Cognitive needs: No Hearing needs: No Vision needs: Yes Questionnaire PHQ-9 Over the last 2 weeks, how often have you been bothered by any of the following problems? 1. Little interest or pleasure in doing things: not at all 2. Feeling down, depressed, or hopeless: not at all 3. Trouble falling or staying asleep, or sleeping too much: not at all 4. Feeling tired or having little energy: not at all 5. Poor appetite or overeating: not at all 6. Feeling bad about yourself - or that you are a failure or have let yourself or your family down: not at all 7. Trouble concentrating on things, such as reading the newspaper or watching television: not at all 8. Moving or speaking so slowly that other people could have noticed. Or the opposite - being so fidgety or restless that you have been moving around a lot more than usual: not at all 9. Thoughts that you would be better off or of hurting yourself in some way: not at all Total score: 0 Source: Developed by Drs. Dave Lu, Socorro Alfaro, Horace Mckeon and colleagues, with an educational juanita from [employer]. Thrive Questionnaire Date Thrive assessed: 04/22/24 I am a: Patient What is your living situation today?: I have a steady place to live Within the past 12 months, did the food you bought not last and you didn't have the money to get more?: Never true Within the past 12 months, did you worry whether your food would run out before you got money to buy more?: Never true Do you have trouble paying for medicines?: No Do you have trouble getting transportation to medical appointments?: No Do you have trouble paying your heating and electricity bill?: No Do you have trouble taking care of your child, family member or friend?: No Do you have trouble with day-to-day activities such as bathing, preparing meals, shopping, managing finances, etc.?: No Are you currently unemployed and looking for a job?: No Are you interested in more education?: No Please select the resources that you would like help with: None Currently or been in a relationship where the following occur: No concerns reported THRIVE Score: 0 AUDIT C Alcohol Use Questionnaire (AUDIT-C) 1. How often do you have a drink containing alcohol?: Monthly or less 2. How many drinks containing alcohol do you have on a typical day when you are drinking?: 1 or 2 3. How often do you have six or more drinks on one occasion?: Never Total Score: 1 SRINIVASAN-7 AMB Questionnaire SRINIVASAN-7 Date SRINIVASAN - 7 assessed: 04/29/24 Feeling nervous, anxious, or on edge: 0 = Not at all Not being able to stop or control worryin = Not at all Worrying too much about different things: 0 = Not at all Trouble relaxin = Not at all Being so restless that it is hard to sit still: 0 = Not at all Becoming easily annoyed or irritable: 0 = Not at all Feeling afraid as if something awful might happen: 0 = Not at all Total SRINIVASAN-7 score (0-4 normal; 5-9 mild; 10-14 moderate; 15-21 severe): 0 Source: Developed by Drs. Dave Lu, Socorro Alfaro, Horace Mckeon and colleagues, with an educational juanita from [employer]. Review of Systems Const Denies chills, Denies fever(s) and Denies headache(s) ENT Denies dizziness, Denies headache(s) and Denies nasal congestion Card Reports no additional complaints and Denies syncope Resp Denies cough GI Denies abdominal pain and Denies heartburn Reports no additional complaints Musc Details: Occasional pain and tightness in posterior neck , nonradiating Skin/Breast Denies lesions and Denies rash Neuro Denies dizziness, Denies syncope and Denies headache(s) Physical exam (Primary Care) Vital Signs: Last Vital Signs Temp 97.9 F 04/29/24 11:17 Pulse 70 04/29/24 11:17 Resp 15 04/29/24 11:17 BP 126/70 04/29/24 11:17 Pulse Ox 95 04/29/24 11:17 Oxygen Delivery Method Room Air 04/29/24 11:17 BMI result Body Mass Index 36.8 Tobacco/Smoking Status: Tobacco use Status Tobacco use date assessed 04/29/24 04/29/24 11:27 Patient Tobacco Use Status Former Tobacco user 04/29/24 11:18 e-Cigarette/Vaping Use Never Used 04/29/24 11:18 PHQ-9: PHQ-9 Score PHQ-9: Total score 0 04/29/24 12:02 Thrive Assessment: Date of Thrive Assessment Date Thrive assessed 04/22/24 04/29/24 11:18 Currently or been in a relationship where the following occur: No concerns reported Const Other: Alert oriented x3, no acute distress noted ambulatory normal gait Neck Neck: Yes full ROM, Yes no lymphadenopathy and Yes supple Resp Effort & Inspection: normal respiratory effort Auscultation: clear to auscultation bilaterally Cardio Other: S1-S2 present regular rate GI Palpation (GI): Soft to palpation, nontender and no guarding Auscultation: normal bowel sounds Back/Spine/Pelvis Cervical Spine: cervical muscular tenderness Skin Nails: yellow and thickened (Toenails bilaterally) Neuro General: gait normal, tone normal, moves all extremities, Normal light touch and pain sensation, no focal motor deficits and CN's II-XI intact bilaterally Extrem General: Yes full ROM, Yes no joint enlargement, Yes no pedal edema and Yes normal gait Results Reviewed Results Reviewed: navdeep: Cong Jolly Age/Sex: 74/M : 1950 Unit#: [id number] Attend Dr: Kari Harvey MD Re03/31/24 Status: DEP REF Location: [facility] Disch: SPEC : [id number] SCOTT: 03/31/24 STATUS: COMP REQ : [id number] RECD: 03/31/[address]: Kari Harvey MD COMP: 03/31/24 ENTERED: 03/31/[address] [facility]: ORDERED: Met Prof Fast, AST, ALT, Lipid Panel Test Result Flag Reference Sodium 141 135-145 mmol/L Potassium 4.1 3.3-5.1 mmol/L CL 107 96-108 mmol/L CO2 27 22-29 mmol/L Gap 11 L 12-20 BUN 19 H 9-16 mg/dL Creat 0.92 0.5-1.4 mg/dL eGFR > 60 Chronic Kidney Disease: Estimated GFR < 60 mL/min/1.73m2 Severe Kidney Disease: Estimated GFR < 15 mL/min/1.73m2 FBS 95 60-99 mg/dL CA 9.1 8.4-10.2 mg/dL AST (GOT) 24 5-37 U/L ALT (GPT) 13 0-40 U/L Triglyceride 50 <150 mg/dL Desirable Triglyceride: less than 150 mg/dL Borderline High Triglyceride 150-199 mg/dL High Triglyceride: 200-499 mg/dL Very High Triglyceride: greater than or equal to 5OO mg/dL Cholesterol 215 H <200 mg/dL Desirable Cholesterol: less than 200 mg/dL Borderline High Cholesterol: 200-239 mg/dL High Cholesterol: greater than 239 mg/dL LDL Calculated 134 H <100 mg/dL Desirable LDL: less than 100 mg/dL Near Optimal/Above Optimal LDL: 110-129 mg/dL Borderline High LDL: 130-159 mg/dL High LDL: 160-189 mg/dL Very High LDL: greater than or equal to 190 mg/dL HDL 71 >40 mg/dL Desirable HDL: greater than 40 mg/dL Note: This HDL assay may give artificially low results in patients with liver disease. 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 Continue amlodipine 5 mg at night, hydrochlorothiazide 25 mg in the morning and lisinopril 10 mg daily. Reinforced importance of following a low sodium diet, getting regular exercise, and lowering stress levels. (3) Dyslipidemia: Code(s): E78.5 - Hyperlipidemia, unspecified Category: Medical Plan: Reviewed recent fasting lipid profile with patient with levels at goal . Continue atorvastatin 20 mg daily , in addition to adherence to low-cholesterol diet and regular exercise, at least 30 minutes 3 to 4 times a week. Advised patient to make healthy food choices, eat more fruits, vegetables, whole grains, wild caught fish and low-fat dairy. Limit amount of meat and fried or fatty food products, as well as processed foods and fast foods. Follow-up scheduled with repeat fasting lipid panel in 6 months. (4) Cervicalgia: Code(s): M54.2 - Cervicalgia Category: Medical Plan: Ordered physical therapy Orders: Orders PT Evaluation and Treatment 04/29/24 M54.2 - Cervicalgia Basic Metabolic Panel Fasting 09/30/24 E78.5 - Hyperlipidemia, unspecified, I10 - Essential (primary) hypertension Aspartate Amino Transferase 09/30/24 E78.5 - Hyperlipidemia, unspecified, I10 - Essential (primary) hypertension Alanine Aminotransferase 09/30/24 E78.5 - Hyperlipidemia, unspecified, I10 - Essential (primary) hypertension Lipid Panel 09/30/24 E78.5 - Hyperlipidemia, unspecified, I10 - Essential (primary) hypertension Referrals Podiatry Referral L60.2 - Onychogryphosis, M20.60 - Acquired deformities of toe(s), unspecified, unspecified foot
--- OUTSIDE RECORDS SUMMARY | 2024-04-29 11:37 | XMS_ITS | Encounter Summary ---
Author Organization [facility] Address [address] [place] [address] Care Team Providers Care Rotary Furnace Tender Name Role Phone Kari Harvey MD Primary Care Provider [phone] Jenaro Preston MD Unavailable [phone] Encounter Details Date Type Department Care Team (Late st Contact Info) Description 02/04/2021 Erroneous Encounter [facility] DEPT [address] [place] [address] ProviderSharla MD Social History Tobacco Use Types Packs/Day Years Used Date Smoking Tobacco: Former Cigarettes Q uit: 01/22/1968 Smokeless Tobacco: Never Alcohol Use Standard Drinks/Week Comments Yes 0 (1 standard drink = 0.6 oz pure alcohol) 1 beer a month - Advised to stop 2 weeks before surgery Sex and Gender Information Value Date Recorded Sex Assigned at Not on file Gender Identity Not on file Sexual Orientation Not on file COVID-19 Exposure Response Date Recorded In the last month, have you been in contact with someone who was confirmed or suspected to have Coronavirus / COVID-19? No / Unsure 02/07/2021 7:28 AM EST documented as of this encounter Plan of Treatment Not on file documented as of this encounter Visit Diagnoses Not on filedocumented in this encounter Care Teams Rotary Furnace Tender Relationship Specialty Start Date End Date Kari Harvey MD [address] [place] [address] PCP - General Internal Medicine 01/17/21 Jenaro Preston MD [address] [address] Urology 01/17/21 documented as of this encounter
--- OUTSIDE RECORDS SUMMARY | 2024-04-29 11:37 | XMS_ITS | Clinical Summary ---
Author Organization [facility] Address [address] [place] [address] Care Team Providers Care Control Technician Name Role Phone Kari Harvey MD Primary Care Provider [phone] Jenaro Preston MD Unavailable [phone] Allergies No known active allergies Medications Medication Sig Dispensed Refills Start Date End Date Status lisinopril (PRINIVIL,ZeSTRIL) 10 MG tablet Take 10 mg by mouth every evening. Take the night before surgery Active atorvastatin (LIPITOR) 20 MG tablet Take 20 mg by mouth every evening. Take the night before surgery Active hydrochlorothiazide (HYDRODIURIL) 25 MG tablet Take 25 mg by mouth every evening. Take the night before surgery Active finasteride (PROSCAR) 5 MG tablet Take 5 mg by mouth every evening. Take the night before surgery Active AMLODIPINE BESYLATE PO Take 2.5 mg by mouth every evening. Take the night before surgery Active latanoprost (XALATAN) 0.005 % ophthalmic solution Administer 1 drop to both eyes every evening. Take the night before surgery Active OMEprazole (PriLOSEC) 40 MG capsule Take 40 mg by mouth. Active aspirin enteric coated (aspirin enteric coated) 81 MG EC tabletIndications:Xochitl vásquez osteoarthritis of right hip Take 1 tablet (81 mg total) by mouth every 12 (twelve) hours around the clock. 56 tablet 02/08/2021 Active meloxicam (MOBIC) 15 MG tabletIndications:Xochitl fahad osteoarthritis of right hip Take 1 tablet (15 mg total) by mouth daily. 14 tablet 02/08/2021 Active senna-docusate (SENNA-S) 8.6-50 MGIndications:Primary osteoarthritis of right hip Take 2 tablets by mouth nightly as needed for constipation. 40 tablet 02/08/2021 Active methocarbamol (ROBAXIN) 750 MG tabletIndications:Xochitl vásquez osteoarthritis of right hip Take 1 tablet (750 mg total) by mouth 4 (four) times a day as needed for muscle spasms. 60 tablet 02/08/2021 Active HYDROmorphone (DILAUDID) 2 MG tabletIndications:Xochitl vásquez osteoarthritis of right hip Take 1-2 tablets (2-4 mg total) by mouth every 4 (four) hours as needed for moderate pain or severe pain. Max Daily Amount: 24 mg 42 tablet 02/08/2021 Active Active Problems Problem Noted Date Diagnosed Date Primary osteoarthritis of right hip 02/07/2021 Abnormal ECG 01/25/2021 Primary hypertension 01/25/2021 Mixed hyperlipidemia 01/25/2021 Other chest pain 01/25/2021 Immunizations Name Administration Dates Next Due Influenza, Unspecified 01/17/2021 Family History Medical History Relation Name Comments Heart disease Father CHF Diabetes Mother Pre-diabetic Heart disease Mother Pacemaker Hyperlipidemia Mother Hypertension Mother No Known Problems Sister 1 No Known Problems Sister 2 Other Son 1 adopted 400lb i n the [place] during gastric bypass surgery No Known Problems Son 2 adopted No Known Problems Son 3 Relation Name Status Comments Father (Age 70's) Mother Alive Sister 1 Alive Sister 2 Alive Son 1 adopted Son 2 adopted Alive Son 3 Alive Social History Tobacco Use Types Packs/Day Years Used Date Smoking Tobacco: Former Cigarettes Q uit: 01/22/1968 Smokeless Tobacco: Never Tobacco Cessation:Counseling Given: No Alcohol Use Standard Drinks/Week Comments Yes 0 (1 standard drink = 0.6 oz pure alcohol) 1 beer a month - Advised to stop 2 weeks before surgery Sex and Gender Information Value Date Recorded Sex Assigned at Not on file Gender Identity Not on file Sexual Orientation Not on file Last Filed Vital Signs Vital Sign Reading Time Taken Comments Blood Pressure 117/67 02/08/2021 1:53 PM EST Pulse 88 02/08/2021 1:53 PM EST Temperature 36.4 ??C (97.6 ??F) 02/08/2021 1:53 PM ES T Respiratory Rate 18 02/08/2021 1:53 PM EST Oxygen Saturation 97% 02/08/2021 1:53 PM EST Inhaled Oxygen Concentration - - Weight 109 kg (241 lb) 02/07/2021 1:24 PM EST Height 170.2 cm (5' 7.01 ) 02/07/2021 1:24 PM ES T Body Mass Index 37.74 02/07/2021 1:24 PM EST Plan of Treatment Health Maintenance Due Date Last Done Comments Hepatitis C Virus Screening 1950 DTaP/Tdap/Td Vaccines (1 - Tdap) 1969 Colonoscopy 1995 Pneumococcal Vaccines 50+ (1 of 1 - PCV) 02/06/2000 Zoster (Shingles) Vaccine (1 of 2) 02/06/2000 Influenza Vaccine 11/01/2023 01/17/2021 COVID-19 Vaccine (1 - 2023-2 5 season) 2023 RSV Vaccine 60 years and old er and Patients (1 - 1-dose 75+ series) 2025 Hepatitis B Vaccines Aged Out No long er eligible based on patient's age to complete this topic Medical Devices Implanted Type Area Disaster Recovery Analyst Device Identifier Shelf Expiration Date Model / Serial / Lot [id number] Shell Acetabular 54mm Hip 3 Hole Poly Por R3 Std Sterl - [id number] Implanted:Qty : 1 on 02/07/2021 by Ayad Cardoso MD at [facility] Joint Prosthesis Right: Hip [employer] S [id number] 05/09/2028 [id number] / / [id number] Head Femoral +0mm /14 Taper 28mm Hip Oxnm [place] Sterl Lf - [id number] Implanted:Qty : 1 on 02/07/2021 by Ayad Cardoso MD at [facility] Joint Prosthesis Right: Hip [employer] S [id number] 10/16/2030 [id number] / / [id number] Stem Femoral 110mm Prim Anthology Por 131d 6 High Offset Hip - [id number] Implanted:Qty : 1 on 02/07/2021 by Ayad Cardoso MD at [facility] Joint Prosthesis Right: Hip [employer] S [id number] 11/06/2030 [id number] / / [id number] Screw Bone Hip Acetabular Canc Reflc R3 Contour 30mm 6.5mm - [id number] Implanted:Qty : 1 on 02/07/2021 by Ayad Cardoso MD at [facility] Screw Right: Hip [employer] S 03/02/2030 [id number] / / [id number] 42 Mm Id 54 Mm Od Oxinium Dh Dual Mobility Liner Implanted:Qty : 1 on 02/07/2021 by Ayad Cardoso MD at [facility] Right: Hip [employer] [id number] 04/25/2030 [id number] / / [id number] 28 Mm Id 42 Mm Od Dual Mobility Insert Implanted:Qty : 1 on 02/07/2021 by Ayad Cardoso MD at [facility] Right: Hip [employer] [id number] 02/23/2030 [id number] / / [id number] Advance Directives * Full Code (Latest Code Status on File) Date Activated Date Inactivated Comments 02/07/2021 1:23 PM * Full Code Date Activated Date Inactivated Comments 02/07/2021 6:57 AM 02/07/2021 1:23 PM Care Teams Control Technician Relationship Specialty Start Date End Date Kari Harvey MD [address] [place] [address] PCP - General Internal Medicine 01/17/21 Jenaro Preston MD [address] [address] Urology 01/17/21
== END 2024-04-29 12:24 | disposition home or self-care (01) ==
PROVIDERS: PCP Internal Medicine; Visit Provider Internal Medicine
DX: L60.2 Onychogryphosis (principal); I10 Essential (primary) hypertension; E78.5 Hyperlipidemia, unspecified; M54.2 Cervicalgia

== ENCOUNTER → 2024-04-29 10:33 | Outpatient (BNVA) | payer MEDICARE, OTHER, SELFPAY | PROVIDERS: PCP Internal Medicine; Visit Provider Internal Medicine | DX: L60.2 Onychogryphosis (principal); E78.5 Hyperlipidemia, unspecified; M54.2 Cervicalgia; I10 Essential (primary) hypertension | CPT/HCPCS: 99212 ==

== ENCOUNTER 2024-07-14 08:00 | Outpatient (RCR) | payer MEDICARE, OTHER, SELFPAY ==
--- NOTE | 2024-06-17 08:59 | MHC.PT.EP ---
[facility] [place] Office [place] Office [place] Office [address] Yesenia Verma [address] [phone] F: [phone] F: [phone] F: [phone] F: [phone] Physical Therapy Plan of Care Date of Evaluation: 06/17/24 Date of Surgery: Diagnosis: This is a 74 yo male presenting to skilled PT with a script for cervicalgia. Assessment: This is a 74 yo male presenting to skilled PT with a script for cervicalgia. Patient reporting ongoing general body stiffness for many years but states that primarily when he was dx'd with costochondritis 25 years ago. He reports that he has sensitive spots at the base of his head that cause MATHEW's. He reports UT soreness and then thoracic spine soreness. Pain increases with rotating his head side to side. He occasionally uses a heating pad and goes to the gym to lift and stretch, 2 miles on the treadmill and walks the golf course/plays 3x/wk. Assessment reveals pain that ranges from up to a 5/10 at the worst. Patient demos decreased B shoulder and cervical ROM, strength of B shoulder's and scaps, TTP at GHJ joint line on the L, UT's and base of the occiput and impaired posture with forward head and rounded shoulders. Based on functional limitations, impaired QOL and pain tolerance patient is a good candidate for skilled PT 2x/wk for 4wks. Frequency and Duration: The patient will be seen 2x/wk for 4wks Short Term Goals: (in 2 wks) I in HEP Improve cervical ROM by at least 25% Demo proper cervical positioning with progression of UB strengthening exercises without cues from PT Pt will demo 75% full B shoulder ROM without pain Fdc Goals: (in 4 wks) Report 50% improvement in QOL Tolerate sleeping through the night without waking from pain Improve NDI by 10 points Improve general pain to no more than 2/10 at the worst Treatment Plan: Modalities to reduce pain, spasms and effusion. Manual therapy to restore motion and function. Therapeutic exercise to improve strength and flexibility. Neuromuscular re-education for posture and balance. Therapeutic activities to return to functional activities of daily living. Electronically signed by: Monica Thao PT Please sign and return to therapist. Thank you for your referral.
--- NOTE | 2024-08-13 12:11 | MHC.PT.DC ---
[facility] [place] Office [place] Office [place] Office [address] Yesenia Verma [address] [phone] F: [phone] F: [phone] F: [phone] F: [phone] Physical Therapy Discharge Report Diagnosis: This is a 74 yo male presenting to skilled PT with a script for cervicalgia. Date of Surgery: Date of Evaluation: 06/17/24 Date of Discharge: 08/13/24 Treatments to Date: 4 Cancellations to Date: 1 No Shows to Date: 0 Discharge Status: Achieved Goals Improved Function Independent with HEP Discharge Summary: 07/14: Patient demos little to no more neck pain now. He would like to move on to his low back so I will re-eval him in the next couple of weeks for this. Patient is I in his HEP, has improved his symptoms and has met his goals. He is going weekly to the gym without any issues. DC to new eval. Electronically signed by: Monica Thao PT Please sign and return to therapist. Thank you for your referral.
== END 2024-08-13 12:12 | disposition home or self-care (01) ==
LOC: HO.PTCHIC 08:00
PROVIDERS: PCP Internal Medicine; Visit Provider Internal Medicine
DX: M54.2 Cervicalgia (principal)
CPT/HCPCS: 97110; 97162

== ENCOUNTER 2024-08-18 09:00 | Outpatient (RCR) | payer MEDICARE, OTHER, SELFPAY ==
--- NOTE | 2024-08-06 13:44 | MHC.PT.EP ---
[facility] [place] Office [place] Office [place] Office [address] Yesenia Verma [address] [phone] F: [phone] F: [phone] F: [phone] F: [phone] Physical Therapy Plan of Care Date of Evaluation: 08/06/24 Date of Surgery: Diagnosis: This is a 74 yo male presenting to skilled PT with a script for low back pain. Assessment: This is a 74 yo male presenting to skilled PT with a script for low back pain. Patient reporting ongoing mid and low back now for many years. He reports most of his pain is located R side low back, dull, spasm and achy. He also reports stiffness across the entire back as well. His his symptoms are constant. Symptoms increase with sitting or standing too long. Symptoms improve with heating pad, stretching. His symptoms are more annoying. Assessment reveals pain that ranges from up to a 7/10 at the worst. Patient demos decreased lumbar, strength of core and back as well as gluts, TTP at lumbar surrounding soft tissues, PSIS, R glut and impaired posture with forward head, forward trunk and rounded shoulders. Based on functional limitations, impaired QOL and pain tolerance patient is a good candidate for skilled PT 2x/wk for 4wks. Frequency and Duration: The patient will be seen 2x/wk for 4wks Short Term Goals: Pt will demonstrate improved postural awareness and understanding of core engagement with supine and standing tasks without cues throughout session to improve overall back safety in 2 weeks. Pt will demonstrate centralization of sx in 2 weeks. Pt will continue to reinforce precautions, sitting, standing and ADL modifications with proper body mechanics in 2 wks Coroner Transport Technician Goals: Pt will demonstrate improved outcome measure by 5 points in 4 weeks for improved functional mobility. Pt will demonstrate ability to bend and lift WNL min to no pain for household tasks in 4 wks. Pt will be I in HEP and compliant in 4wks Pt will demo no pain at the gym with I care Treatment Plan: Modalities to reduce pain, spasms and effusion. Manual therapy to restore motion and function. Therapeutic exercise to improve strength and flexibility. Neuromuscular re-education for posture and balance. Therapeutic activities to return to functional activities of daily living. Electronically signed by: Monica Thao PT Please sign and return to therapist. Thank you for your referral.
--- NOTE | 2024-09-16 08:27 | MHC.PT.DC ---
[facility] [place] Office [place] Office [place] Office [address] Yesenia Verma [address] [phone] F: [phone] F: [phone] F: [phone] F: [phone] Physical Therapy Discharge Report Diagnosis: This is a 74 yo male presenting to skilled PT with a script for low back pain. Date of Surgery: Date of Evaluation: 08/06/24 Date of Discharge: 09/16/24 Treatments to Date: 3 Cancellations to Date: 0 No Shows to Date: 0 Discharge Status: Independent with HEP Patient Elected to Stop Discharge Summary: Per last tx note on 08/18: Patient wants to squat heels to bottom for golfing purposes and was a little resistant to education however in general we are here to focus on his back. Continued previous POC with ed on form/technique as needed. Patient did not return for further tx. He has a good HEP to continue on his own, belongs to a gym and frequently golfs. He was educated on stretching and strengthening. Chart was closed after 30 days. Electronically signed by: Monica Thao PT Please sign and return to therapist. Thank you for your referral.
== END 2024-09-16 08:27 | disposition home or self-care (01) ==
LOC: HO.PTCHIC 09:00
PROVIDERS: PCP Internal Medicine; Visit Provider Internal Medicine
DX: M54.50 Low back pain, unspecified (principal)
CPT/HCPCS: 97110; 97161

== ENCOUNTER 2024-09-02 10:41 | Outpatient (REF) | payer MEDICARE, OTHER, SELFPAY ==
--- OUTSIDE RECORDS SUMMARY | 2024-09-02 12:18 | XMS_ITS | Clinical Summary ---
Author Organization [facility] Address [address] [place] [address] Care Team Providers Care Heating And Ventilating Worker Name Role Phone Kari Harvey MD Primary Care Provider [phone] Jenaro Preston MD Unavailable [phone] Allergies No known active allergies Medications lisinopril (PRINIVIL,ZeSTRIL) 10 MG tablet Take 10 mg by mouth every evening. Take the night before surgery Active atorvastatin (LIPITOR) 20 MG tablet Take 20 mg by mouth every evening. Take the night before surgery Active hydrochlorothiazid e (HYDRODIURIL) 25 MG tablet Take 25 mg [...] coated (aspirin enteric coated) 81 MG EC tabletIndications: Primary osteoarthritis of right hip Take 1 tablet (81 mg total) by mouth every 12 (twelve) hours around the clock. 56 tablet 1 Active meloxicam (MOBIC) 15 MG tabletIndications: Primary osteoarthritis of right hip Take 1 tablet (15 mg total) by mouth daily. 14 tablet 1 Active senna-docusate (SENNA-S) 8.6-50 MGIndications:Prim tamar osteoarthritis of right hip Take 2 tablets by mouth nightly as needed for constipation. 40 tablet 1 Active methocarbamol (ROBAXIN) 750 MG tabletIndications: Primary osteoarthritis of right hip Take 1 tablet (750 mg total) by mouth 4 (four) times a day as needed for muscle spasms. 60 tablet 1 Active HYDROmorphone (DILAUDID) 2 MG tabletIndications: Primary osteoarthritis of right hip Take 1-2 tablets (2-4 mg total) by mouth every 4 (four) hours as needed for moderate pain or severe pain. Max Daily Amount: 24 mg 42 tablet 1 Active Active Problems Problem Noted Date Diagnosed Date Primary osteoarthritis of right hip 02/07/2021 Abnormal ECG 01/25/2021 Primary hypertension 01/25/2021 Mixed hyperlipidemia 01/25/2021 Other chest pain 01/25/2021 Immunizations Immunization Administration Dates Next Due Influenza, Unspecified 01/17/2021 [...] Recorded Sex Assigned at Not on file Legal Sex Male 8:31 AM EDT Gender Identity Not on file Sexual Orientation [...] Zoster (Shingles) Vaccine (1 of 2) 02/06/2000 COVID-19 Vaccine ( - 2023-2 5 season) 2023 Influenza Vaccine 10/31/2024 01/17/2021 RSV Vaccine 60 years and old er and Patients (1 - 1-dose 75+ series) 2025 Hepatitis B Vaccines Aged Out No long er eligible based on patient's age to complete this topic Medical Devices Implanted Type Area Patrol Mother Device Identifier Shelf Expiration Date Model / Serial / Lot [id number] Shell Acetabular 54mm Hip 3 Hole Poly Por R3 Std Sterl - [id number] Implanted:Qty : 1 on 02/07/2021 by Ayad Cardoso MD at [facility] Joint Prosthesis Right: Hip [employer] [id number] 05/09/2028 [id number] / / [id number] Head Femoral +0mm 12/14 Taper 28mm Hip Oxnm [place] Sterl Lf - [id number] Implanted:Qty : 1 on 02/07/2021 by Ayad Cardoso MD at [facility] Joint Prosthesis Right: Hip [employer] [id number] 10/16/2030 [id number] / / [id number] Stem Femoral 110mm Prim Anthology Por 131d 6 High Offset Hip - [id number] Implanted:Qty : 1 on 02/07/2021 by Ayad Cardoso MD at [facility] Joint Prosthesis Right: Hip [employer] [id number] 11/06/2030 [id number] / / [id number] Screw Bone Hip Acetabular Canc Reflc R3 Contour 30mm 6.5mm - [id number] Implanted:Qty : 1 on 02/07/2021 by Ayad Cardoso MD at [facility] Screw Right: Hip [employer] 03/02/2030 [id number] / / [id number] 42 Mm Id 54 Mm Od Oxinium Dh Dual Mobility Liner Implanted:Qty : 1 on 02/07/2021 by Ayad Cardoso MD at [facility] Right: Hip [employer] [id number] 04/25/2030 [id number] / / [id number] Or30 28 Mm Id 42 Mm Od Dual Mobility Insert Implanted:Qty : 1 on 02/07/2021 by Ayad Cardoso MD at [facility] Right: Hip [employer] [id number] 02/23/2030 [id number] / / [id number] Insurance MEDICARE PART A & B [facility] [employer] MEDICARE PART A & B FOR LIFE MEDICARE PART A & B FOR LIFE Advance Directives * Full Code (Latest Code Status on File) Date Activated Date Inactivated Comments 02/07/2021 1:23 PM * Full Code Date Activated Date Inactivated Comments 02/07/2021 6:57 AM 02/07/2021 1:23 PM Care Teams Heating And Ventilating Worker Relationship Specialty Start Date End Date Kari Harvey MD [address] [place] [address] PCP - General Internal Medicine 01/17/21 Jenaro Preston MD [address] [address] Urology 01/17/21
[2024-09-02 14:24] LABS: Prostate Specific Antigen 1.96 ng/mL (<0.05-4.0)
== END 2024-09-02 10:42 | disposition home or self-care (01) ==
LOC: HO.HMGCLDS 10:41
PROVIDERS: PCP Internal Medicine; Visit Provider Urology
DX: C61 Malignant neoplasm of prostate (principal); Z12.5 Encounter for screening for malignant neoplasm of prostate
CPT/HCPCS: 36415; 84153

== ENCOUNTER 2024-09-10 14:08 | Outpatient (AMB) | payer MEDICARE, OTHER, SELFPAY ==
--- NOTE | 2024-09-10 14:09 | A.OFFVIS_ITS ---
Intake Visit Reasons: 6m/PSA Intake Note: Patient is present for 6M/PSA Urology Medication:FINASTERIDE Antibiotic Allergy:NONE Blood Thinner:NONE Marketing And Development Coordinator Required: No Allergies No Known Allergies Allergy (Verified 09/10/24 14:09) Medication List - Last Reconciled 09/10/24 by Jenaro Preston MD amlodipine 5 mg PO DAILY atorvastatin 20 mg PO DAILY finasteride 5 mg PO DAILY 90 days hydrochlorothiazide 25 mg PO QAM latanoprost 0.005% drps ophthalmic (eye) lisinopril 10 mg PO QAM omeprazole 40 mg PO DAILY HPI Comments Details: Mr Jolly is a very pleasant male. He is a patient of Dr. Harvey. He is seen for the following urologic conditions. - prostate cancer - retired on [employer], [employer]. Telemedicine Evaluation 15 min Consultation [employer] Juan J Video Six-month follow-up PSA remains stable Minimal issues Continue 6 month surveillance Prescription refilled Use finasteride - Sunday, Sunday, Sunday - reduce to 04/03 tab Prostate cancer: low-grade, low volume 2016 PSA stable Continue surveillance Prostate cancer was diagnosed 05/19 Dr Preston. Diagnosis was reached by needle biopsy, for elevated PSA, PSA at diagnosis 10, , size at TRUS 60cc. The [place] grade is 05/2016 3+3 = 6, At biopsy, one out of twelve cores - left apex 50% . TNM Classification of Malignant Tumours (TNM) T1c. The D'Ellen (NCCN) risk category is Low Risk (PSA< 10, Gl < 7, T1c). Initial therapy included Primary treatment, Observation. Recent labs included a PSA (prostate-specific antigen) Apr 18 - 10.4, Oct 16 8.4, 02/16 5.3/19%, 10/17 10.3, 07/19 8.8 F 15%, 01/18 2.5. - 09/20 4.25, 03/22 2.9 finasteride, 11/21 2.0. 05/25 2.2, 04/24 1.9, 12/24 1.8, 09/24 1.9 Recent imaging included 11/17 MRI 1.2 cm lesion at base, low piRADS. Therapeutic plan: Continue with surveillance. COUNT INCLUDES THE [facility] Medical History (Updated 07/10/24 @ 10:03 by Kari Harvey MD) Lumbago syndrome History of COVID-19 Costochondritis Arthralgia of multiple sites GERD (gastroesophageal reflux disease) Glaucoma Dyslipidemia Essential hypertension Surgical History H/O total hip arthroplasty Hx of colonoscopy Status post total hip replacement, left History of wisdom tooth extraction Family History Father CHF (congestive heart failure) Glaucoma Mother HTN (hypertension) Sister No problems noted. Sister No problems noted. Son No problems noted. Son No problems noted. Son No problems noted. Social History Housing: House Alcohol intake: current Patient Tobacco Use Status: Former Tobacco user Years Smoked: 3 yrs e-Cigarette/Vaping Use: Never Used Second Hand Smoke Exposure: No service: No Current occupational status: retired Current occupation: right handed. Cognitive needs: No Hearing needs: No Vision needs: Yes Review of Systems Const All systems reviewed & are unremarkable except as noted in HPI and below Reports no additional complaints Resp Reports no additional complaints GI Reports no additional complaints Reports as per HPI Musc Reports no additional complaints Physical Exam Telemedicine evaluation Appropriate responses Regular breathing rate and rhythm HEENT Head: Yes normal to inspection Ears: hearing grossly normal bilaterally Eyes General: appearance normal, both eyes and all related structures Neck Neck: Yes normal visual inspection Chest Chest palpation & inspection: normal inspection of the chest Resp Effort & Inspection: normal respiratory effort and able to speak in complete sentences Telehealth Telehealth Telehealth Platform: [facility] Location of provider rendering services: practice address Location of patient: address on file Patient Identification confirmed using: Name, : Yes Telehealth method: video Patient verbally consented to treatment: Yes Patient verbally consented to billing insurance company: Yes Patient informed of any privacy concerns related to visit: Yes Minutes spent on Phone/Video with Pt.: 15 Assessment & Plan Assessment & Plan (1) Prostate cancer: Comment: May 2016 low-grade, low volume Code(s): C61 - Malignant neoplasm of prostate Category: Medical Plan Six-month follow-up office PSA Orders: Orders Prostate Specific Antigen 6 Months C61 - Malignant neoplasm of prostate Patient Instructions: This note is constructed using voice recognition software. While every effort has been made to ensure accuracy network account manager errors may have been included. Imaging studies, laboratory and physical exam results were discussed and reviewed in detail. No major barriers to patient understanding were identified. An opportunity to ask questions regarding the treatment plan was provided. All questions were answered. The patient expressed understanding and agreement with the above treatment plan. The patient is aware they should contact our office by phone for worsening of their current condition or the appearance of new urologic symptoms. Compliance is encouraged with any medications and followup testing that is ordered. It is a privilege to participate in the urologic care of your patient. If you have any questions or concerns regarding treatment for the above conditions, or other urologic issues, please do not hesitate to contact me. The office telephon e contact is [phone]. Sincerely, Dr Jenaro Preston MD, [facility] - Urology Compassionate Specialist Care for the Genitourinary System Coding Level of Care Code Tele Est Pt Level 3 (06045) Complex EM visit Add On G2211 Diagnoses Prostate cancer C61
--- OUTSIDE RECORDS SUMMARY | 2024-09-10 16:12 | XMS_ITS | Clinical Summary ---
Author Organization [facility] Address [address] [place] [address] Care Team Providers Care Forge Helper Name Role Phone Kari Harvey MD Primary Care Provider [phone] Jenaro Preston MD Unavailable [phone] Allergies No known active allergies Medications lisinopril [...] this topic Medical Devices Implanted Type Area Farm Truck Driver Device Identifier Shelf Expiration Date Model / Serial / Lot [id number] Shell Acetabular 54mm Hip 3 Hole Poly Por R3 Std Sterl - [id number] Implanted:Qty : 1 on 02/07/2021 by Ayad Cardoso MD at [facility] Joint Prosthesis Right: Hip [employer] [id number] 05/09/2028 [id number] / / [id number] Head Femoral +0mm 12/14 Taper 28mm Hip Oxnm [place] Sterl Lf - [id number] Implanted:Qty : 1 on 02/07/2021 by Ayad Cardoso MD at [facility] Joint Prosthesis Right: Hip [employer] DIV S [id number] 10/16/2030 [id number] / / [id number] Stem Femoral 110mm Prim Anthology Por 131d 6 High Offset Hip - [id number] Implanted:Qty : 1 on 02/07/2021 by Ayad Cardoso MD at [facility] Joint Prosthesis Right: Hip [employer] DIV S [id number] 11/06/2030 [id number] / / [id number] Screw Bone Hip Acetabular Canc Reflc R3 Contour 30mm 6.5mm - [id number] Implanted:Qty : 1 on 02/07/2021 by Ayad Cardoso MD at [facility] Screw Right: Hip [employer] DIV S 03/02/2030 [id number] / / [id number] Aor30 42 Mm Id 54 Mm Od Oxinium Dh Dual Mobility Liner Implanted:Qty : 1 on 02/07/2021 by Ayad Cardoso MD at [facility] Right: Hip [employer] [id number] 04/25/2030 [id number] / / [id number] Or30 28 Mm Id 42 Mm Od Dual Mobility Insert Implanted:Qty : 1 on 02/07/2021 by Ayad Cardoso MD at [facility] Right: Hip [employer] [id number] 02/23/2030 [id number] / / [id number] Insurance MEDICARE PART A & B [facility] [place] [employer] MEDICARE PART A & B FOR LIFE MEDICARE PART A & B FOR LIFE Advance Directives * Full Code (Latest Code Status on File) Date Activated Date Inactivated Comments 02/07/2021 1:23 PM * Full Code Date Activated Date Inactivated Comments 02/07/2021 6:57 AM 02/07/2021 1:23 PM Care Teams Forge Helper Relationship Specialty Start Date End Date Kari Harvey MD [address] [place] [address] PCP - General Internal Medicine 01/17/21 Jenaro Preston MD [address] [address] Urology 01/17/21
== END 2024-09-10 14:48 | disposition home or self-care (01) ==
LOC: HO.HUSH 14:08
PROVIDERS: PCP Internal Medicine; Visit Provider Urology
DX: C61 Malignant neoplasm of prostate (principal)
CPT/HCPCS: 99213; G2211

== ENCOUNTER → 2024-09-10 14:08 | Outpatient (BNVA) | payer MEDICARE, OTHER, SELFPAY | PROVIDERS: PCP Internal Medicine; Visit Provider Urology | DX: Z13.89 Encounter for screening for other disorder (principal) ==

== ENCOUNTER 2024-10-20 07:41 | Outpatient (REF) | payer MEDICARE, OTHER, SELFPAY ==
--- OUTSIDE RECORDS SUMMARY | 2024-10-20 07:43 | XMS_ITS ---
Author Name [facility] Organization Unknown Encounters Encounter Type Encounter Reason Primary Diagnosis Location Date Inpatient Unilateral prima ry osteoarthritis, right hip [facility] 02/07/2021 Ambulatory Encounter for preprocedural laboratory examination [facility] 2021 Ambulatory [facility] 02/02/2021 Ambulatory Abnormal electrocardiogram (ECG) (EKG) [facility] 01/25/2021 Ambulatory Encounter for ot her preprocedural examination [facility] 01/24/2021 Care Team Organization Name Specialty Phone Email Start Date End Da te [facility] 02/07/20212023 [facility]ANDA DAVILA Primary Care 01/25/20212020
[2024-10-20 10:31] LABS: Alanine Aminotransferase 14 U/L (0-40); Anion Gap 10 (12-20); Aspartate Amino Transferase 21 U/L (5-37); Blood Urea Nitrogen 21 mg/dL (9-16); Calcium 9.0 mg/dL (8.4-10.2); Carbon Dioxide 27 mmol/L (22-29); Chloride 110 mmol/L (96-108); Cholesterol 192 mg/dL (<200); Estimated Glomerular Filt Rate > 60; HDL Cholesterol 65 mg/dL (>40); Potassium 4.0 mmol/L (3.3-5.1); Sodium 143 mmol/L (135-145); Triglycerides 62 mg/dL (<150)
== END 2024-10-20 07:42 | disposition home or self-care (01) ==
LOC: HO.HMGCLDS 07:41
PROVIDERS: PCP Internal Medicine; Visit Provider Internal Medicine
DX: I10 Essential (primary) hypertension (principal); E78.5 Hyperlipidemia, unspecified
CPT/HCPCS: 36415; 80048; 80061; 84450; 84460

== ENCOUNTER 2024-10-27 07:39 | Outpatient (AMB) | payer MEDICARE, OTHER, SELFPAY ==
--- OUTSIDE RECORDS SUMMARY | 2024-10-27 07:43 | XMS_ITS | Patient Health Record ---
Author Organization [facility] [place] Address [address] [place] [address] Care Team Providers Care Can Worker Name Role Phone Candice GUDINO, Kari Shaikh Primary Care Provider Un available Eleonora Cotto Unavailable [phone] Allergies No Known Allergies Reason For Referral No Information Medications Medication SIG (Take, Route, Fr equency, Duration) Notes Start Date End Date Status Baby Aspirin Active Lisinopril Active Latanoprost Active hydroCHLOROthiazide Active Finasteride Active amLODIPine Besylate Active Atorvastatin Calcium Active Social History Tobacco Use: Social History Observation Description Date Details (start date - stop date) Never Smoker NA - NA Tobacco use other than smoking: Question Answer Notes Are you an other tobacco user? No Tobacco Control (Standard) Question Answer Notes Tobacco use: Nonsmoker Additional Findings: Tobacco non-user Current no nsmoker AUDIT-C (Standard) Question Answer Notes Did you have a drink contain ing alcohol in the past year? Yes How often did you have a dri nk containing alcohol in the past year? Never (0 point) How many drinks did you have on a typical day when you were drinking in the past year? 1 or 2 drinks (0 point) How often did you have six o r more drinks on one occasion in the past year? Never (0 point) Points 0 Interpretation Negative Problems Problem Type SNOMED Code ICD Code Onset Dates Problem Status W/U Status Risk Notes Problem Acquired hammer toe of right foot (2859953014142 105) Other hammer toe(s) (acquired), right foot (M20.41) Active confirmed Problem Hallux valgus of right foot (7071667279) Hallux valgus of right foot (M20.11) Active confirmed Problem Arthritis of joint of lesser toe, right (M19.071) Active confirmed Vital Signs Blood pressure diastolic 88 mm Hg 07/28/2024 Height 5 ft 9 in in 07/28/2024 Blood pressure systolic 120 mm Hg 07/28/2024 Weight 245 lbs 07/28/2024 BMI 36.18 kg/m2 07/28/2024 Encounters Encounter [facility] Date [facility] [address] [facility]/28/2024 Eleonora Cotto Other hammer toe(s) (acquired), right foot M20.41 ; Subluxation of metatarsophalangeal joint of toe, initial encounter S93.149A and Hallux valgus of right foot M20.[address] [address] 05/26/2024 Eleonora Cotto [address] [address] 07/21/2024 Eleonora Kirti [facility] [address] 07/22/2024 [facility] [address] 07/22/2024 Eleonora Cotto Assessments Encounter Date Diagnosis (ICD Code) Assessment Notes Treatment Notes Treatment Clinical Notes Section Notes 07/28/2024 Other hammer toe(s) (acquired), right foot (ICD-10 - M20.41) 07/28/2024 Subluxation of metatarsophalangeal joint of toe, initial encounter (ICD-10 - S93.149A) 07/28/2024 Hallux valgus of rig ht foot (ICD-10 - M20.11) Plan Of Treatment No Information Insurance Providers Payer Name Payer Address Payer Phone Subscriber Number Group Number Insured Name Patient Relationship to Insured Coverage Start Date Coverage End Date Medicare National Govt S[employer] [address] [place] [address] [id number] Cong Jolly Self - patient is the insured [address] [place] [address] [place] [phone] [id number] Cong Jolly Self - patient is the insured Medical (General) History Medical History History ICD Code Arthritis asthma Back,Hip,and Knee pain Broken bones CAD (Cholesterol) Cancer covid-19 Glaucoma High Blood Pressure Measles Mumps Chicken pox Joint implants/screws Surgical History Surgery Date(Month/Year) left hip replacement 2012 right hip replacement 2022
--- OUTSIDE RECORDS SUMMARY | 2024-10-27 07:43 | XMS_ITS | Clinical Summary ---
Author Organization [facility] Address [address] [address] Phone Care Team Providers Care Lead Oxide Mill Tender Name Role Phone Kari Harvey MD Primary Care Provider Allergies No known active allergies Medications amLODIPine (NORVASC) 2.5 MG tablet Take 2.5 mg by mouth daily. Active atorvastatin (LIPITOR) 20 MG tablet Take 20 mg by mouth daily. Active finasteride (PROSCAR) 5 mg tablet Take 5 mg by mouth daily. Active hydroCHLOROthia zide (HYDRODIURIL) 25 MG tablet Take 25 mg by mouth daily. Active latanoprost (XALATAN) 0.005 % ophthalmic solution Place 1 drop into each eye nightly at bedtime. Active lisinopril (PRINIVIL,ZESTR IL) 10 MG tablet Take 10 mg by mouth daily. Active omeprazole (PRILOSEC) 40 MG capsule Take 40 mg by mouth as needed. Active Active Problems No known active problems Social History Tobacco Use Types Packs/Day Years Used Date Smoking Tobacco: Former Smokeless Tobacco: Never Alcohol Use Standard Drinks/Week Comments Yes 0 (1 standard drink = 0.6 oz pur e alcohol) Education Answer Date Recorded Are you interested in more education? Not on zelda e 07/28/2022 Are you concerned about learning? Not on file 07/28/2022 No 07/28/2022 No 07/28/2022 Digital Access Answer Date Recorded No 08/26/2022 No 08/26/2022 No 08/26/2022 Reliable internet access at home? Not on file 08/26/2022 Device with a working camera? Not on file Sex and Gender Information Value Date Recorded Sex Assigned at Male 06/15/2020 9:35 PM EDT Legal Sex Male 8:55 AM EST Gender Identity Male 06/15/2020 9:35 PM EDT Sexual Orientation Straight 06/15/2020 9: 35 PM EDT Last Filed Vital Signs Vital Sign Reading Time Taken Comments Blood Pressure 148/82 06/18/2020 8:19 AM EDT Pulse - - Temperature 9.9 C (49.8 F) 06/03/2020 7:55 AM EST Respiratory Rate - - Oxygen Saturation - - Inhaled Oxygen Concentration - - Weight 118.8 kg (262 lb) 06/18/2020 8:19 AM EDT Height 175.3 cm (5' 9 ) 06/18/2020 8:19 AM EDT Body Mass Index 38.69 06/18/2020 8:19 AM EDT Plan of Treatment Health Maintenance Due Date Last Done Comments Adult Td,Tdap Booster 1950 LIPID PANEL 1950 DEPRESSION SCREENING 1962 SMOKING Hx and SMOKELESS TOBACCO SCREENING 1963 HEPATITIS C SCREENING 02/06/1968 COLOGUARD 1995 COLONOSCOPY 1995 COLORECTAL CANCER SCREENING 1995 FIT TEST 1995 FOBT 1995 SIGMOIDOSCOPY 1995 VIRTUAL COLONOSCOPY 1995 ZOSTER VACCINES (1 of 2) 02/06/2000 ABDOMINAL AORTIC ANEURYSM (AAA) SCREENING 2015 CREATININE LEVEL 06/03/2021 06/03/2020 POTASSIUM LEVEL 06/03/2021 06/03/2020 COVID-19 VACCINE (2 - 2023-2 5 season) 2023 05/25/2020 RSV VACCINE (1 - 1-dose 75+ series) 2025 PNEUMOCOCCAL VACCINES (50+ years) Completed 07/18/2017, 12/10/2015 HEPATITIS A VACCINES Aged Out No long er eligible based on patient's age to complete this topic HIB VACCINES Aged Out No longer eligi ble based on patient's age to complete this topic MENINGOCOCCAL VACCINES (ACWY) Aged Out No longer eligible based on patient's age to complete this topic MENINGOCOCCAL VACCINES (B) Aged Out N o longer eligible based on patient's age to complete this topic Medical Devices Not on file Procedures Procedure Name Priority Date/Time Associated Diagnosis Comments COMPREHENSIVE METABOLIC PANEL Routine 06/03/2020 9:35 AM EST Costochondritis from Last 3 Months or Most Recently Relevant to Health Maintenance Results * (ABNORMAL) Comprehensive metabolic panel (06/03/2020 9:35 AM EST) SODIUM 140 133 - 146 mmol/L [facility] POTASSIUM 3.9 3.3 - 5.1 mmol/L [facility] CHLORIDE 102 96 - 108 mmol/L [facility] CO2 29 21 - 35 mmol/L [facility] BUN 18 6 - 19 mg/dL [facility] CREATININE 0.90 0.5 - 1.5 mg/dL [facility] GLUCOSE 109(H) 70 - 99 mg/dL [facility] ALBUMIN 4.1 3.9 - 4.8 g/dL [facility] TOTAL PROTEIN 7.3 6.5 - 8.0 g/dL [facility] CALCIUM 9.4 8.4 - 10.3 mg/dL [facility] ALKALINE PHOSPHATASE 109 39 - 117 U/L [facility] TOTAL BILIRUBIN 0.5 0.0 - 1.2 mg/dL [facility] AST 26 0 - 37 U/L [facility] ALT 15 0 - 40 U/L [facility] GLOBULIN 3.2 1 - 4.8 g/dL [facility] EGFR 86 >59 mL/min/1.7 3m2 [facility] Comment:Estimated glomerular filtration rate calculated using the CKD-EPI equation. ANION GAP 13 10 - 20 mmol/L [facility] Blood 06/03/2020 9:35 AM EST 06/03/2020 9:42 AM EST us Wang Diez MD LAB BLOOD ORDERAB LES Final Result [address] [address] from Last 3 Months or Most Recently Relevant to Health Maintenance Insurance MEDICARE PART A & B [employer] MEDICARE SUPPLEMENT MEDICARE PART A & B [employer] MEDICARE SUPPLEMENT MEDICARE PART A & B Member Subscriber Plan / Payer ( fective 2015-Present) Name:Cong Jolly Member ID:[id number] Relation to Subscriber:Self Name:Cong Jolly Subscriber ID:[id number] Payer ID:[id number] Group ID:Not on file Type:Medicare Address: [employer] [address] [place] [phone] [employer] MEDICARE SUPPLEMENT MEDICARE PART A & B Member Subscriber Plan / Payer ( fective 2015-Present) Name:Cong Jolly Member ID:[id number] Relation to Subscriber:Self Name:Cong Jolly Subscriber ID:[id number] Payer ID:[id number] Group ID:Not on file Type:Medicare Address: [employer] [address] [place] [phone] [employer] MEDICARE SUPPLEMENT MEDICARE PART A & B [employer] MEDICARE SUPPLEMENT MEDICARE PART A & B [employer] MEDICARE SUPPLEMENT Member Subscriber Plan / Payer ( fective 2015-) Name:Cong Jolly Relation to Subscriber:Self Name:Cong Jolly Payer ID:[id number] (NAIC) Group ID:Not on file Type:[facility] Address: [place] [phone] MEDICARE PART A & B [employer] MEDICARE SUPPLEMENT MEDICARE PART A & B [employer] MEDICARE SUPPLEMENT MEDICARE PART A & B [facility] MEDICARE SUPPLEMENT Care Teams Lead Oxide Mill Tender Relationship Specialty Start Date End Date Kari Harvey MD [facility] [place] [address] PCP - General Internal Medicine 05/25/20 Additional Source Comments The information contained in this document represents components of the legal health record. It is not the complete legal health record.[facility]
[2024-10-27 08:06] VITALS: BP 136/84; PULSE 80; TEMP 36.6; O2SAT 100; BMI 37.4
--- NOTE | 2024-10-27 08:06 | MHC.PC.OV ---
Vital Signs 10/27/24 08:06 Height 5 ft 9 in Weight 253 lb BMI 37.4 BP 136/84 Blood Pressure Location Lt brachial Position Sitting Pulse 80 Pulse Source Pulse Oximeter Temp 97.9 F Temp Source Oral Pulse Oximetry (%) 100 Intake Visit Reasons: 6m follow up Commissary Clerk Required: No Accompanied by: Self / Same As Patient Allergies No Known Allergies Allergy (Verified 10/27/24 17:17) Medication List - Last Reconciled 10/27/24 by Kari Harvey MD amlodipine 5 mg PO DAILY atorvastatin 20 mg PO DAILY finasteride 5 mg PO DAILY 90 days hydrochlorothiazide 25 mg PO QAM latanoprost 0.005% drps ophthalmic (eye) lisinopril 10 mg PO QAM omeprazole 40 mg PO DAILY Tobacco use date assessed: 04/29/24 Fall risk assessment: No Falls in past year Last assessed Fall Risk: 10/27/24 Dental Screening Dental Screen Date: 04/29/24 HPI 6m follow up HPI Details - The patient is a 74-year-old male hypertension, and GERD with history of hypertension, dyslipidemia, impaired fasting glucose, current heartburn symptoms, presenting for a routine follow-up visit to review lab results - Hyperglycemia: The patient's blood glucose level has increased from 95 mg/dL to 106 mg/dL over the past six to seven months, potentially due to dietary habits which includes daily consumption of sweet ice tea. - Hyperlipidemia: The patient's cholesterol levels have decreased by 15 points since the last evaluation, currently on atorvastatin 20 mg daily - Glaucoma and Cataracts: The patient has been diagnosed with glaucoma and cataracts, with a recent change in ophthalmologists due to the previous doctor's nursing home. - Arthritis: The patient experiences arthritis, particularly in the hands and ribcage, which is managed with topical treatments and acetaminophen an occasional application of absorbine kimber veterinary strength, to affected areas which has helped - Hypertension: The patient is currently on a hydrochlorothiazide, amlodipine, and lisinopril, with adequate control of blood pressure noted - Gastroesophageal Reflux Disease (GERD): The patient uses omeprazole as needed for heartburn, particularly after consuming spicy foods, and is considering switching to famotidine - Preventative care: The patient is overdue for a tetanus vaccination, with the last recorded dose in 2005. [facility] Medical History (Updated 10/27/24 @ 08:37 by Kari Harvey MD) Impaired fasting glucose Lumbago syndrome History of COVID-19 Costochondritis Arthralgia of multiple sites GERD (gastroesophageal reflux disease) Glaucoma Dyslipidemia Essential hypertension Surgical History H/O total hip arthroplasty Hx of colonoscopy Status post total hip replacement, left History of wisdom tooth extraction Family History Father CHF (congestive heart failure) Glaucoma Mother HTN (hypertension) Sister No problems noted. Sister No problems noted. Son No problems noted. Son No problems noted. Son No problems noted. Social History Housing: House Alcohol intake: current Patient Tobacco Use Status: Former Tobacco user Years Smoked: 3 yrs e-Cigarette/Vaping Use: Never Used Second Hand Smoke Exposure: No service: No Current occupational status: retired Current occupation: right handed. Cognitive needs: No Hearing needs: No Vision needs: Yes Questionnaire Thrive Questionnaire Date Thrive assessed: 10/27/24 I am a: Patient What is your living situation today?: I have a steady place to live Within the past 12 months, did the food you bought not last and you didn't have the money to get more?: Never true Within the past 12 months, did you worry whether your food would run out before you got money to buy more?: Never true Do you have trouble paying for medicines?: No Do you have trouble getting transportation to medical appointments?: No Do you have trouble paying your heating and electricity bill?: No Do you have trouble taking care of your child, family member or friend?: No Do you have trouble with day-to-day activities such as bathing, preparing meals, shopping, managing finances, etc.?: No Are you currently unemployed and looking for a job?: No Are you interested in more education?: No Please select the resources that you would like help with: None Currently or been in a relationship where the following occur: No concerns reported THRIVE Score: 0 SRINIVASAN-7 AMB Questionnaire SRINIVASAN-7 Date SRINIVASAN - 7 assessed: 04/29/24 Source: Developed by Socorro Ryan Dominic, Horace Mckeon and colleagues, with an educational juanita from [employer]. Review of Systems Const Denies headache(s) Eyes Reports as per HPI ENT Denies dizziness and Denies headache(s) Card Reports no additional complaints and Denies dyspnea Resp Denies cough and Denies dyspnea GI Reports as per HPI and Denies abdominal pain Reports no additional complaints Musc Reports as per HPI Skin/Breast Denies lesions and Denies rash Neuro Denies dizziness and Denies headache(s) Psych Reports no additional complaints Endo Reports no additional complaints Alex/Lymph Reports no additional complaints Aller/Immun Reports no additional complaints Physical exam (Primary Care) Vital Signs: Last Vital Signs Temp 97.9 F 10/27/24 08:06 Pulse 80 10/27/24 08:06 BP 136/84 10/27/24 08:06 Pulse Ox 100 10/27/24 08:06 BMI result Body Mass Index 37.4 Tobacco/Smoking Status: Tobacco use Status Tobacco use date assessed 04/29/24 10/27/24 08:06 Patient Tobacco Use Status Former Tobacco user 10/27/24 08:06 e-Cigarette/Vaping Use Never Used 10/27/24 08:06 Thrive Assessment: Date of Thrive Assessment Date Thrive assessed 10/27/24 10/27/24 08:06 Currently or been in a relationship where the following occur: No concerns reported Const Other: Alert oriented x3, no acute distress noted ambulatory normal gait Neck Neck: Yes full ROM, Yes no lymphadenopathy and Yes supple Resp Effort & Inspection: normal respiratory effort Auscultation: clear to auscultation bilaterally Cardio Other: S1-S2 present regular rate GI Palpation (GI): Soft to palpation, nontender and no guarding Auscultation: normal bowel sounds General: Yes no CVA tenderness Back/Spine/Pelvis Back: no CVA tenderness and No back tenderness Neuro General: gait normal, tone normal, moves all extremities, Normal light touch and pain sensation, no focal motor deficits and CN's II-XI intact bilaterally Extrem General: Yes full ROM, Yes no joint enlargement, Yes no pedal edema and Yes normal gait Results Reviewed Results Reviewed: Name: Cong Jolly Age/Sex: 74/M : 1950 Unit#: [id number] Attend Dr: Kari Harvey MD Re10/20/24 Status: DEP [facility] Disch: SPEC : [id number] SCOTT: 10/20/24 STATUS: COMP REQ : [id number] RECD: 10/20/[address]: Kari Harvey MD COMP: 10/20/24 ENTERED: 10/20/[address] [facility] [address]: ORDERED: Met Prof Fast, AST, ALT, Lipid Panel Test Result Flag Reference Sodium 143 135-145 mmol/L Potassium 4.0 3.3-5.1 mmol/L CL 110 H 96-108 mmol/L CO2 27 22-29 mmol/L Gap 10 L 12-20 BUN 21 H 9-16 mg/dL Creat 0.88 0.5-1.4 mg/dL eGFR > 60 Chronic Kidney Disease: Estimated GFR < 60 mL/min/1.73m2 Severe Kidney Disease: Estimated GFR < 15 mL/min/1.73m2 FBS 106 H 60-99 mg/dL A fasting glucose from 100-125 mg/dl is considered impaired (pre-diabetes). CA 9.0 8.4-10.2 mg/dL AST (GOT) 21 5-37 U/L ALT (GPT) 14 0-40 U/L Triglyceride 62 <150 mg/dL Desirable Triglyceride: less than 150 mg/dL Borderline High Triglyceride 150-199 mg/dL High Triglyceride: 200-499 mg/dL Very High Triglyceride: greater than or equal to 5OO mg/dL Cholesterol 192 <200 mg/dL Desirable Cholesterol: less than 200 mg/dL Borderline High Cholesterol: 200-239 mg/dL High Cholesterol: greater than 239 mg/dL LDL Calculated 115 H <100 mg/dL Desirable LDL: less than 100 mg/dL Near Optimal/Above Optimal LDL: 110-129 mg/dL Borderline High LDL: 130-159 mg/dL High LDL: 160-189 mg/dL Very High LDL: greater than or equal to 190 mg/dL HDL 65 >40 mg/dL Desirable HDL: greater than 40 mg/dL Note: This HDL assay may give artificially low results in patients with liver disease. Coding Level of Care Code Est Pt Level 4 (12742) Diagnoses Essential hypertension I10 Dyslipidemia E78.5 Gastroesophageal reflux disease without esophagitis K21.9 Esophagitis presence: without esophagitis Assessment & Plan Assessment & Plan (1) Essential hypertension: Code(s): I10 - Essential (primary) hypertension Category: Medical Plan: To do hydrochlorothiazide 25 mg in the morning, lisinopril 10 mg in the morning and amlodipine 5 mg daily. Reinforced importance of following a low-salt diet and getting regular exercise. (2) Dyslipidemia: Code(s): E78.5 - Hyperlipidemia, unspecified Category: Medical Plan: Recent fasting labs showed lipids within normal limits, continue on atorvastatin 20 mg daily (3) GERD (gastroesophageal reflux disease): Code(s): K21.9 - Gastro-esophageal reflux disease without esophagitis Category: Medical Qualifiers: Esophagitis presence: without esophagitis Qualified Code(s): K21.9 - Gastro-esophageal reflux disease without esophagitis Plan: Takes omeprazole only as needed for occasional attacks of heartburn or when anticipating eating a spicy meal Orders: Orders Basic Metabolic Panel Fasting 04/04/25 E78.5 - Hyperlipidemia, unspecified, I10 - Essential (primary) hypertension, R73.01 - Impaired fasting glucose Alanine Aminotransferase 04/04/25 E78.5 - Hyperlipidemia, unspecified, I10 - Essential (primary) hypertension, R73.01 - Impaired fasting glucose Lipid Panel 04/04/25 E78.5 - Hyperlipidemia, unspecified, I10 - Essential (primary) hypertension, R73.01 - Impaired fasting glucose Hemoglobin A1c 04/04/25 E78.5 - Hyperlipidemia, unspecified, I10 - Essential (primary) hypertension, R73.01 - Impaired fasting glucose Aspartate Amino Transferase 04/04/25 E78.5 - Hyperlipidemia, unspecified, I10 - Essential (primary) hypertension, R73.01 - Impaired fasting glucose Medications: Refilled hydrochlorothiazide 25 mg PO QAM 90 tabs 3RF
== END 2024-10-27 08:39 | disposition home or self-care (01) ==
LOC: HO.HMCC 07:40
PROVIDERS: PCP Internal Medicine; Visit Provider Internal Medicine
DX: I10 Essential (primary) hypertension (principal); E78.5 Hyperlipidemia, unspecified; K21.9 Gastro-esophageal reflux disease without esophagitis

== ENCOUNTER → 2024-10-27 07:39 | Outpatient (BNVA) | payer MEDICARE, OTHER, SELFPAY | PROVIDERS: PCP Internal Medicine; Visit Provider Internal Medicine | DX: I10 Essential (primary) hypertension (principal); E78.5 Hyperlipidemia, unspecified; K21.9 Gastro-esophageal reflux disease without esophagitis | CPT/HCPCS: 99212 ==

== ENCOUNTER 2025-02-28 09:27 | Outpatient (REF) | payer MEDICARE, OTHER, SELFPAY ==
--- OUTSIDE RECORDS SUMMARY | 2025-02-28 09:29 | XMS_ITS | Patient Health Record ---
Author Organization [facility] [place] Address [address] [place] [address] Care Team Providers Care Broadcast Systems Engineer Name Role Phone Candice GUDINO, Kari Shaikh Primary Care Provider Un available Eleonroa Cotto Unavailable [phone] Allergies No Known Allergies Reason For Referral [...] Problem Status W/U Status Risk Notes Problem Information temporarily unavailable Other hammer toe(s) (acquired), right foot (M20.41) Active confirmed Problem Information temporarily unavailable Hallux valgus of right foot (M20.11) Active confirmed Problem Information temporarily unavailable Arthritis of joint of lesser toe, right (M19.071) Active confirmed Vital Signs Blood pressure diastolic 88 mm Hg 07/28/2024 Height 5 ft 9 in in 07/28/2024 Blood pressure systolic 120 mm Hg 07/28/2024 Weight 245 lbs 07/28/2024 BMI 36.18 kg/m2 07/28/2024 Encounters Encounter Location Date Provider Diagnosis [address] [address] 07/28/2024 Eleonora Cotto Other hammer toe(s) (acquired), right foot M20.41 ; Subluxation of metatarsophalangeal joint of toe, initial encounter S93.149A and Hallux valgus of right foot M20.11 [facility] [address] [address] 05/26/2024 Eleonora Roberts Chapeldalila [facility] [address] 07/21/2024 Eleonora Roberts Chapeldalila [facility] [address] [address] 07/22/2024 Eleonora Roberts Chapeldalila [facility] [address] 07/22/2024 Eleonora Cotto Assessments Encounter Date Diagnosis [...] Medicare [employer] [address] [place] [address] [id number] Cong Jolly Self - patient is the insured [address] [place] [address] [phone] [id number] Cong Jolly Self - patient is the insured Medical (General) History Medical History History ICD Code Arthritis asthma Back,Hip,and Knee pain Broken bones CAD (Cholesterol) Cancer covid-19 Glaucoma High Blood Pressure Measles Mumps Chicken pox Joint implants/screws Surgical History Surgery Date(Month/Year) left hip replacement 2012 right hip replacement 2022
--- OUTSIDE RECORDS SUMMARY | 2025-02-28 09:29 | XMS_ITS | Clinical Summary ---
Author Organization [facility] Address [address] [address] Phone Care Team Providers Care Cross Tie Tram Loader Name Role Phone Kari Harvey MD Primary [...] 1995 ZOSTER VACCINES (1 of 2) 02/06/2000 CREATININE LEVEL 06/03/2021 06/03/2020 POTASSIUM LEVEL 06/03/2021 06/03/2020 INFLUENZA VACCINE (#1) 2024 0, 01/06/2019, 03/13/2017, Additional history exists COVID-19 VACCINE ( - 2024- season) 2024 05/25/2020 RSV VACCINE (1 - 1-dose 75+ [...] Date/Time Associated Diagnosis Comments COMPREHENSIVE METABOLIC PANEL (CMP) Routine 06/03/2020 9:35 AM EST Costochondritis from Last 3 Months or Most Recently Relevant to Health Maintenance Results * (ABNORMAL) Comprehensive metabolic panel (06/03/2020 9:35 AM EST) SODIUM 140 133 - 146 mmol/L [facility] POTASSIUM 3.9 3.3 - 5.1 mmol/L [facility] CHLORIDE 102 96 - 108 mmol/L [facility] CO2 29 21 - 35 mmol/L [facility] BUN 18 6 - 19 mg/dL [facility] CREATININE 0.90 0.5 - 1.5 mg/dL [facility] GLUCOSE 109(H) 70 - 99 mg/dL [facility] ALBUMIN 4.1 3.9 - 4.8 g/dL [facility] TOTAL PROTEIN 7.3 6.5 - 8.0 g/dL [facility] CALCIUM 9.4 8.4 - 10.3 mg/dL [facility] ALKALINE PHOSPHATASE 109 39 - 117 U/L [facility] TOTAL BILIRUBIN 0.5 0.0 - 1.2 mg/dL [facility] AST 26 0 - 37 U/L [facility] ALT 15 0 - 40 U/L [facility] GLOBULIN 3.2 1 - 4.8 g/dL [facility] EGFR 86 >59 mL/min/1.7 3m2 [facility] Comment:Estimated glomerular filtration rate calculated using the CKD-EPI equation. ANION GAP 13 10 - 20 mmol/L [facility] Blood 06/03/2020 9:35 AM EST 06/03/2020 9:42 AM EST us Wang Diez MD LAB BLOOD BKR ORD ERABLES Final Result [facility] [address] [address] from Last 3 Months or Most Recently Relevant to Health Maintenance Insurance MEDICARE PART A & B [employer] MEDICARE SUPPLEMENT [facility] Address: [place] [id number] [place] [address] MEDICARE PART A & B [employer] MEDICARE SUPPLEMENT [facility] Address: [address] [address] MEDICARE PART A & B [employer] MEDICARE SUPPLEMENT [facility] Address: [address] [phone] MEDICARE PART A & B [employer] MEDICARE SUPPLEMENT [facility] Address: [place] [phone] MEDICARE PART A & B [employer] MEDICARE SUPPLEMENT [facility] Address: [address] [phone] MEDICARE PART A & B FOR LIFE MEDICARE SUPPLEMENT [facility] Address: [address] [phone] MEDICARE PART A & B [facility] FOR LIFE MEDICARE SUPPLEMENT [facility] Address: [address] [phone] MEDICARE PART A & B FOR LIFE MEDICARE SUPPLEMENT MEDICARE PART A & B FOR LIFE MEDICARE SUPPLEMENT [facility] Address: [address] [phone] Care Teams Cross Tie Tram Loader Relationship Specialty Start Date End Date Kari Harvey MD [address] [facility] [address] PCP - General Internal Medicine 05/25/20 Additional Source Comments The information contained in this document represents components of the legal health record. It is not the complete legal health record.[facility]
--- OUTSIDE RECORDS SUMMARY | 2025-02-28 09:29 | XMS_ITS | Clinical Summary ---
Author Organization [facility] Address [address] [place] [address] Care Team Providers Care Joiner Helper Name Role Phone Kari Harvey MD Primary Care Provider [phone] Jenaro Preston MD Unavailable [phone] Allergies No known active allergies Medications lisinopril [...] 88 02/08/2021 1:53 PM EST Temperature 36.4 C (97.6 F) 02/08/2021 1:53 PM EST Respiratory Rate 18 02/08/2021 1:53 PM EST Oxygen Saturation 97% 02/08/2021 1:53 PM EST Inhaled Oxygen Concentration - - Weight 109 kg (241 lb) 02/07/2021 1:24 PM EST Height 170.2 cm (5' 7.01 ) 02/07/2021 1:24 PM ES T Body Mass Index 37.74 02/07/2021 1:24 PM EST Plan of Treatment Health Maintenance Due Date Last Done Comments Advance Care Planning 1950 Hepatitis C Virus Screening 1950 DTaP/Tdap/Td Vaccines (1 - Tdap) 1969 Colonoscopy 1995 Pneumococcal Vaccines 50+ (1 of 1 - PCV) 02/06/2000 Zoster (Shingles) Vaccine (1 of 2) 02/06/2000 Influenza Vaccine 10/31/2024 01/17/2021 COVID-19 Vaccine ( - 2023-2 5 season) 2024 RSV Vaccine 50 years and old er and Patients (1 - 1-dose 75+ series) 2025 Hepatitis B Vaccines Aged Out No long er eligible based on patient's age to complete this topic Medical Devices Implanted Type Area Forge Shop Machine Repairer Device Identifier Shelf Expiration Date Model / Serial / Lot [id number] Shell Acetabular 54mm Hip 3 Hole Poly Por R3 Std Sterl - [id number] Implanted:Qty : 1 on 02/07/2021 by Ayad Cardoso MD at [facility] Joint Prosthesis Right: Hip [employer] - DIV S [id number] 05/09/2028 [id number] / / [id number] Head Femoral +0mm 12/14 Taper 28mm Hip Oxnm [place] Sterl Lf - [id number] Implanted:Qty : 1 on 02/07/2021 by Ayad Cardoso MD at [facility] Joint Prosthesis Right: Hip [employer] DIV S [id number] 10/16/2030 [id number] / / [id number] Stem Femoral 110mm Prim Anthology Por 131d 6 High Offset Hip - [id number] Implanted:Qty : 1 on 02/07/2021 by Ayad Cardoso MD at [facility] Joint Prosthesis Right: Hip [employer] DIV S [id number] 11/06/2030 [id number] / / [id number] Screw Bone Hip Acetabular Canc Reflc R3 Contour 30mm 6.5mm - [id number] Implanted:Qty : 1 on 02/07/2021 by Ayad Cardoso MD at [facility] Screw Right: Hip [employer] DIV S 03/02/2030 [id number] / / [id number] 42 Mm Id 54 Mm Od Oxinium Dh Dual Mobility Liner Implanted:Qty : 1 on 02/07/2021 by Ayad Cardoso MD at [facility] Right: Hip [employer] [id number] 04/25/2030 [id number] / / [id number] 28 Mm Id 42 Mm Od Dual Mobility Insert Implanted:Qty : 1 on 02/07/2021 by Ayad Cardoso MD at [facility] Right: Hip [employer] [id number] 02/23/2030 [id number] / / [id number] Insurance MEDICARE PART A & B [employer] MEDICARE PART A & B FOR LIFE MEDICARE PART A & B FOR LIFE Advance Directives * Full Code (Latest Code Status on File) Date Activated Date Inactivated Comments 02/07/2021 1:23 PM * Full Code Date Activated Date Inactivated Comments 02/07/2021 6:57 AM 02/07/2021 1:23 PM Care Teams Joiner Helper Relationship Specialty Start Date End Date Kari Harvey MD [address] [place] [address] PCP - General Internal Medicine 01/17/21 Jenaro Preston MD [address] [address] Urology 01/17/21
[2025-02-28 11:57] LABS: Prostate Specific Antigen 1.81 ng/mL (<0.05-4.0)
== END 2025-02-28 09:28 | disposition home or self-care (01) ==
LOC: HO.HMGCLDS 09:27
PROVIDERS: PCP Internal Medicine; Visit Provider Urology
DX: C61 Malignant neoplasm of prostate (principal); Z12.5 Encounter for screening for malignant neoplasm of prostate
CPT/HCPCS: 36415; 84153